=== PATIENT | female | born 1985 | race Caucasian/White ===

== ENCOUNTER 2016-10-28 23:00 | Emergency (ER) | payer MEDICAID ==
[2016-10-28 23:41] LABS: BILIRUBIN,URINE NEGATIVE (NEGATIVE)
[2016-10-28 23:48] LABS: UA w/ MICROSCOPIC CHARGE YES
[2016-10-28] MEDS ORDERED: HYDROmorphone 1 MG/ML SYRINGE IVP STA (23:58)
[2016-10-28] MEDS ORDERED: ONDANSETRON 4 MG/2 ML VIAL IVP STA (23:58)
[2016-10-28] MEDS ORDERED: SODIUM CHLORIDE 0.9% 1,000 ML IV ONE (23:58)
[2016-10-29] MEDS ORDERED: SODIUM CHLORIDE 0.9% 1,000 ML IV ONE
[2016-10-29] MEDS ORDERED: HYDROmorphone 1 MG/ML SYRINGE ONE
[2016-10-29] MEDS ORDERED: ONDANSETRON 4 MG/2 ML VIAL ONE
[2016-10-29 00:01] LABS: UR CULTURE IF IND INDICATED
[2016-10-29 00:15] LABS: BASOPHILS % (AUTO) 0.4 %; EOSINOPHILS # (AUTO) 0.1 10^3/uL (0.0-0.7); EOSINOPHILS % (AUTO) 1.2 %; HCT - HEMATOCRIT 39.9 % (37.0-47.0); HGB - HEMOGLOBIN 13.4 g/dL (12.0-16.0); LYMPHOCYTES # (AUTO) 2.1 10^3/uL (1.5-3.5); LYMPHOCYTES % (AUTO) 23.2 %; MEAN CORPUSCULAR HGB CONC 33.7 g/dL (32.0-36.0); MEAN PLATELET VOLUME 8.1 fL (7.9-10.8); MONOCYTES # (AUTO) 0.8 10^3/uL (0.0-1.0); MONOCYTES % (AUTO) 8.6 %; NEUTROPHILS # (AUTO) 6.1 10^3/uL (1.5-6.6); NEUTROPHILS % (AUTO) 66.6 %; RED BLOOD COUNT 4.34 10^6/uL (4.20-5.40); RED CELL DISTRIBUTION WIDTH 12.8 % (12.0-15.0); UNCORRECTED WHITE BLOOD COUNT 9.2 x10^3/uL; WHITE BLOOD COUNT 9.2 x10^3/uL (4.8-10.8)
[2016-10-29 00:18] LABS: HCG UR QUAL POSITIVE
[2016-10-29 00:30] LABS: ALBUMIN/GLOBULIN RATIO 1.3 (1.0-2.2); BILIRUBIN,TOTAL 0.3 mg/dL (0.2-1.0); CALCIUM 9.1 mg/dL (8.5-10.3); CREATININE 0.6 mg/dL (0.4-1.0); POTASSIUM 3.4 mmol/L (3.5-5.0)
--- NOTE | 2016-10-29 03:20 | Ultrasound Preliminary Report ---
Exam: US OB First Trimester IMPRESSION: 1. Single viable intrauterine at EGA 6 weeks 5 days with KRYSTYNA 06/19/2017 based on crown-rump length, which is discordant with clinical dates. 2. Assigned dating is KRYSTYNA 06/19/2017 based on current ultrasound. 3. Heterogeneous appearance of the cervix, of uncertain etiology. [facility] SITE ID: [id number]
[2016-10-29 03:23] VITALS: BP 120/70
--- NOTE | 2016-10-29 03:23 | Ultrasound Report ---
EXAM: FIRST TRIMESTER OBSTETRIC ULTRASOUND (Less than 11 weeks) EXAM DATE: 10/29/2016 03:01 AM. CLINICAL HISTORY: Pelvic cramping pain in first trimester. LMP: 08/30/2016. COMPARISONS: None. TECHNIQUE: Transabdominal and transvaginal ultrasound examination with static image documentation. CLINICAL DATES: EGA 8 weeks 4 days with KRYSTYNA 06/06/2017 based on LMP. ASSESSMENT: Gestational Sac: Single intrauterine. Mean gestational sac diameter: 31 mm = 8 weeks 2 days. Embryo: CRL (crown-rump length) 7 mm = 6 weeks 5 days. Cardiac activity: 136 beats per minute. Yolk sac: 3.3 mm. Early placenta: Not visible at this gestational age. Other: No perigestational fluid collection demonstrated. MATERNAL STRUCTURES: Uterus: Retroverted. Possible intramural fibroid at the right lateral fundal area measuring 1.4 x 1.1 x 1.2 cm. Cervix: Closed. Heterogeneous echotexture. Right Ovary: 3.1 x 2.2 x 2.8 cm, volume 9.9 cc. Unremarkable. Left Ovary: 2.6 x 1.9 x 2.9 cm, volume 7.7 cc. Unremarkable. Free Fluid: None. Other: None. IMPRESSION: 1. Single viable intrauterine at EGA 6 weeks 5 days with KRYSTYNA 06/19/2017 based on crown-rump length, which is discordant with clinical dates. 2. Assigned dating is KRYSTYNA 06/19/2017 based on current ultrasound. 3. Heterogeneous appearance of the cervix, of uncertain etiology. [facility] Referring Provider Line: [phone] SITE ID: [id number]
--- NOTE | 2016-10-29 03:25 | ED Physician Documentation ---
PD HPI FEMALE - Stated complaint Stated Complaint: ABDOMINAL CRAMPING,8W - Chief complaint Chief Complaint: Abd Pain - History obtained from History obtained from: Patient - History of Present Illness Timing - onset: How many hours ago (4) Timing - details: Still present Pain level max: 10 Associated symptoms: Pelvic pain (cramping). No: Vaginal bleeding, Dysuria Contributing factors: (at approximately 8 weeks gestation) OB-CAPITAL PROJECT ENGINEER History: G (7), P (4), Miscarriage(s) (2) - Additional information Additional information: The patient is a spontaneous AB 2 female, currently at about 8 weeks gestation, who presents with pelvic cramping pain that started about 4 hours prior to arrival. She denies vaginal bleeding or dysuria. She reports nausea but denies vomiting or fever. Review of Systems Constitutional: denies: Fever Nose: denies: Congestion Throat: denies: Sore throat Cardiac: denies: Chest pain / pressure Respiratory: denies: Dyspnea, Cough GI: reports: Abdominal Pain (Lower abdominal/pelvic cramping.), Nausea. denies : Vomiting : reports: LMP (Mid-August.). denies: Dysuria, Vaginal bleeding Skin: denies: Rash Musculoskeletal: denies: Back pain Neurologic: denies: Headache PD PAST MEDICAL HISTORY - Past Medical History Cardiovascular: None Respiratory: None Neuro: Headache/migraine Endocrine/Autoimmune: None GI: None : Other HEENT: None Psych: Depression Musculoskeletal: None Derm: None Other Past Medical History: UTI - Past Surgical History Past Surgical History: Yes - Present Medications Home Medications: Ambulatory Orders Medication Instructions Recorded Confirmed Nitrofurantoin [Macrobid] 100 mg PO ONCE #5 capsule 10/29/16 Ondansetron Odt [Zofran] 4 mg TL Q6H PRN #10 tablet 10/29/16 - Allergies Allergies/Adverse Reactions: Allergies Allergy/AdvReac Type Severity Reaction Status Date / Time No Known Drug Allergies Allergy Verified 10/28/16 23:08 - Social History Does the pt smoke?: No Smoking Status: Never smoker Does the pt drink ETOH?: Yes Does the pt have substance abuse?: No - Immunizations Immunizations are current?: Yes - POLST Patient has POLST: No PD ED PE NORMAL - Vitals Vital signs reviewed: Yes (normal) - General General: Alert and oriented X 3, Well developed/nourished, Other (Appears uncomfortable, sitting up and rocking on the gurney.) - HEENT HEENT: Atraumatic, EOMI, Pharynx benign - Neck Neck: No adenopathy, No JVD - Cardiac Cardiac: RRR, No murmur - Respiratory Respiratory: No respiratory distress, Clear bilaterally - Abdomen Abdomen: Soft, Other (Tenderness to palpation in the suprapubic region, without rebound tenderness or guarding.) - Female Female : General Medical Practitioner present - Back Back: No CVA TTP - Derm Derm: No rash - Extremities Extremities: No edema, No calf tenderness / cord - Neuro Neuro: Alert and oriented X 3, No motor deficit, Normal speech PD ED PE EXPANDED - Female Female : Normal external, Enlarged uterus, Cultures sent, General Medical Practitioner present. No: Vaginal Bleeding, Vaginal Discharge, Dilated cervix, Tissue present, Adnexal Mass, Adnexal Tenderness Results - Vitals Vitals: Vital Signs - 24 hr 10/28/16 10/29/16 10/29/16 23:00 00:15 00:47 Temperature 36.8 C Heart Rate 121 H 102 H 96 Respiratory 20 18 14 Rate Blood Pressure 146/84 H 121/60 114/62 O2 Saturation 97 98 97 10/29/16 10/29/16 00:58 03:22 Temperature Heart Rate 91 72 Respiratory 16 16 Rate Blood Pressure 114/62 120/70 O2 Saturation 100 100 Oxygen O2 Source Room air - Labs Labs: Microbiology 10/28/16 23:25 Urine Culture - Preliminary Urine,Clean Catch Laboratory Tests 10/28/16 10/28/16 10/28/16 00:05 00:05 00:05 WBC 9.2 RBC 4.34 Hgb 13.4 Hct 39.9 MCV 92.0 MCH 31.0 MCHC 33.7 RDW 12.8 Plt Count 213 MPV 8.1 Neut # 6.1 Lymph # 2.1 [place] # 0.8 Eos # 0.1 Baso # 0.0 Absolute Nucleated RBC 0.00 Nucleated RBCs 0.0 Sodium 135 Potassium 3.4 L Chloride 103 Carbon Dioxide 24 Anion Gap 8.0 BUN 10 Creatinine 0.6 Estimated GFR (MDRD) 115 Glucose 112 H Calcium 9.1 Total Bilirubin 0.3 AST 17 ALT 15 Alkaline Phosphatase 46 Total Protein 7.0 Albumin 4.0 Globulin 3.0 Albumin/Globulin Ratio 1.3 Lipase 24 HCG, Quant 19639.00 Urine Color Urine Clarity Urine pH Ur Specific [place] Urine Protein Urine Glucose (UA) Urine Ketones Urine Occult Blood Urine Nitrite Urine Bilirubin Urine Urobilinogen Ur Leukocyte Esterase Urine RBC Urine WBC Ur Squamous Epith Cells Urine Bacteria Ur Microscopic Review Urine Culture Comments Urine HCG, Qual 10/28/16 10/28/16 23:25 23:25 WBC RBC Hgb Hct MCV MCH MCHC RDW Plt Count MPV Neut # Lymph # [place] # Eos # Baso # Absolute Nucleated RBC Nucleated RBCs Sodium Potassium Chloride Carbon Dioxide Anion Gap BUN Creatinine Estimated GFR (MDRD) Glucose Calcium Total Bilirubin AST ALT Alkaline Phosphatase Total Protein Albumin Globulin Albumin/Globulin Ratio Lipase HCG, Quant Urine Color YELLOW Urine Clarity CLEAR Urine pH 6.0 Ur Specific [place] 1.010 1.010 Urine Protein NEGATIVE Urine Glucose (UA) NEGATIVE Urine Ketones NEGATIVE Urine Occult Blood SMALL H Urine Nitrite POSITIVE H Urine Bilirubin NEGATIVE Urine Urobilinogen 0.2 (NORMAL) Ur Leukocyte Esterase SMALL H Urine RBC 0-5 Urine WBC 11-25 H Ur Squamous Epith Cells NONE SEEN Urine Bacteria None Seen Ur Microscopic Review INDICATED Urine Culture Comments INDICATED Urine HCG, Qual POSITIVE - Rads (name of study) Pelvic U/S Radiology: Prelim report reviewed, EMP read contemporaneously, See rad report (1 ) Single viable intrauterine at an estimated gestational age 6 weeks 5 days, with KRYSTYNA 06/19/2017 based on crown-rump length, which is discordant with clinical dates. 2)Assigned dating is KRYSTYNA is 06/19/2017 based on current ultrasound. 3)Heterogeneous appearance of the cervix, of uncertain etiology.) PD MEDICAL DECISION MAKING - ED course Complexity details: reviewed results, re-evaluated patient, considered differential, d/w patient, d/w family ED course: The patient's presentation is significant for pelvic cramping pain during first trimester . Pelvic ultrasound reveals a viable single intrauterine at an estimated gestational age of 6 weeks, 5 days. Urinalysis is positive for leukocyte esterase and nitrates. Urine culture and sensitivity are pending. Treatment in the emergency department included administration of normal saline 1 L IV, Dilaudid 1 mg IV, and Zofran 4 mg IV. This completely relieved the patient's pain and nausea. Nitrofurantoin 100 mg administered orally. She is being discharged with prescriptions for Macrobid and for Phenergan. 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 Departure - Departure Disposition: 01 Home, Self Care Clinical Impression: Pelvic pain affecting in first trimester, antepartum Urinary tract infection Qualifiers: Urinary tract infection type: acute cystitis Hematuria presence: without hematuria Qualified Code(s): N30.00 - Acute cystitis without hematuria Condition: Stable Instructions: ED UTI Cystitis Female, ED Pelvic Pain UKO, Preg 1st Trimester Follow-Up: Shannan Kimball, [Provider Admit Priv/Credential] - Prescriptions: Nitrofurantoin [Macrobid] 100 mg PO ONCE #5 capsule Ondansetron Odt [Zofran] 4 mg TL Q6H PRN #10 tablet PRN Reason: Nausea / Vomiting Comments: Drink plenty of fluids, including cranberry juice. Take Macrobid twice daily as prescribed. You can use Zofran as prescribed if needed for nausea. Use Tylenol, up to 1000 mg 4 times daily if needed for discomfort. Follow up with your e learning specialist on Saturday as planned. Return to the emergency department if you develop increasing pain, persistent vomiting, or otherwise worsening symptoms. Discharge Date/Time: 10/29/16 03:55
[2016-10-29] MEDS ORDERED: NITROFURANTOIN MACRO 100 MG CAPSULE PO STA (03:41)
[2016-10-29] MEDS ORDERED: NITROFURANTOIN MACRO 100 MG CAPSULE PO ONE (03:47)
[2016-10-30 20:03] LABS: C.TRACHOMATIS BY TMA Negative (Negative); N.GONORRHOEAE BY TMA Negative (Negative)
== END 2016-10-29 03:55 | disposition home or self-care (01) ==
LOC: ED 23:00
DX: O26.891 Other specified pregnancy related conditions, first trimester (principal); R10.2 Pelvic and perineal pain; O23.11 Infections of bladder in pregnancy, first trimester; Z3A.01 Less than 8 weeks gestation of pregnancy
CPT/HCPCS: 36415; 76801; 76817; 80053; 81001; 81025; 83690; 84702; 85025; 87077; 87086; 87181; 87491; 87591; 96361; 96374; 96375; 99284; A9270; J1170; 81003

== ENCOUNTER 2016-11-26 11:16 | Outpatient (CLI) | payer MEDICAID | END 2016-11-26 11:17 | disposition home or self-care (01) | DX: Z36 Encounter for antenatal screening of mother (principal) ==

== ENCOUNTER 2017-01-08 08:00 | Outpatient (CLI) | payer MEDICAID | END 2017-01-08 08:01 | disposition home or self-care (01) | LOC: LAB 08:00 | PROVIDERS: ATTEND Obstetrics & Gynecology | DX: Z36 Encounter for antenatal screening of mother (principal) | CPT/HCPCS: 36415; 81599; 82105 ==

== ENCOUNTER 2017-02-04 12:49 | Outpatient (CLI) | payer MEDICAID ==
--- NOTE | 2017-02-04 18:42 | Ultrasound Report ---
OBSTETRICAL ULTRASOUND: 02/04/2017 TECHNIQUE: Real-time scanning was performed with patient service representative static images obtained. COMPARISON: 10/29/2016 Patient's EDC by early obstetrical ultrasound done on 10/29/2016 is 06/17/2017. TECHNIQUE: Real-time scanning was performed with patient service representative static images obtained. LAST MENSTRUAL PERIOD 09/12/2016 Clinical Age 20 weeks 5 days US Age 20 weeks 3 days EFW Hadlock 374 g EFW% Hadlock --- Heart Rate 136 bpm EDC 06/19/2017 US EDC 06/21/2017 BPD Hadlock 19 weeks 3 days; Mean mm 44.6 HC Hadlock 19 weeks 5 days; Mean mm 171.0 AC Hadlock 21 weeks 0 days; Mean mm 158.6 FL Hadlock 20 weeks 6 days; Mean mm 34.5 Presentation variable Placental Location anterior Cervical Length 5.47 cm Amniotic Fluid 14.29 cm FINDINGS: Composite gestational age today is 20 weeks 3 days. EDC by ultrasound today is 06/21/2017. Present gestational age is only 3 days less advanced than expected as calculated from patient's early obstetrical ultrasound. This degree of growth is within normal limits. Estimated weight today is 374 grams. Fetus anatomically appears within normal limits. This includes head, body , spine, four-chamber view of the heart, cardiac outflow tract, and bladder. face appears normal including nasal bones. Normal three-vessel umbilical cord is seen. Anterior placenta is noted. Umbilical cord insertion site is slightly eccentric but is greater than 2 cm from the periphery of the edge of the placenta. No placenta previa was seen. Amniotic fluid volume index is 14.29. This is within the 50th percentile. heart rate is 136 beats per minute and regular. The maternal cervix appears to be enlarged and along its left half contains prominent hyperechoic structure measuring 3.0 x 3.5 x 5.0 cm. This hyperechoic tissue within the mid and left side of the uterus is nonspecific. It was seen on preceding ultrasound of 10/29/2006 and is unchanged. It appears to enlarge the cervix. Cervix measures 6.7 x 3.0 x 8.1 cm. This finding could represent a fibroid within the cervix. There is a solid mass noted projecting from the left lateral aspect of the cervix measuring 2.2 x 3.6 x 1.8 cm. This isoechoic to hypoechoic solid mass may represent an adventitial fibroid extending from the superolateral aspect of the cervix. The patient should be very carefully followed. The cervix should be reevaluated at 30 weeks and 1-2 weeks prior to delivery. If these do represent fibroids, they could interfere with a vaginal delivery. IMPRESSION: 1. SINGLE FETUS IS NOTED IN VARIABLE POSITIONS WITHIN THE UTERUS WITH COMPOSITE GESTATIONAL AGE TODAY OF 20 WEEKS 3 DAYS. THE PRESENT GESTATIONAL AGE IS 3 DAYS LESS ADVANCED THAN EXPECTED CALCULATED FROM PATIENT 'S ORIGINAL ULTRASOUND OF 10/29/2016. 2. NORMAL ANATOMY IS NOTED. 3. ANTERIOR PLACENTA. 4. NORMAL AMOUNT OF AMNIOTIC FLUID IS NOTED. 5. SIGNIFICANTLY ENLARGED CERVIX IS ONCE AGAIN NOTED. THE CERVIX SHOWS HYPERECHOIC TISSUE IN ITS LEFT SIDE THAT MOST LIKELY PRODUCES THE ENLARGEMENT. THIS HYPERECHOIC TISSUE MAY REPRESENT A FIBROID WITHIN THE CERVIX. IN ADDITION , EXTENDING FROM THE LATERAL SUPERIOR ASPECT OF THE CERVIX MAY BE A SMALLER ADVENTITIAL FIBROID. RECOMMEND THE CERVIX BE EVALUATED AT 30 WEEKS GESTATIONAL AGE AND THEN 1-2 WEEKS PRIOR TO TERM DELIVERY. IF THESE INDEED REPRESENT FIBROIDS, THEY COULD INTERFERE WITH VAGINAL DELIVERY. RECOMMEND CLINICAL CORRELATION. JOB #: [id number] EXT JOB #: [id number] GORDO
== END 2017-02-04 12:50 | disposition home or self-care (01) ==
LOC: DI 12:49
PROVIDERS: ATTEND Obstetrics & Gynecology
DX: Z34.82 Encounter for supervision of other normal pregnancy, second trimester (principal)
CPT/HCPCS: 76811

== ENCOUNTER 2017-03-06 16:15 | Outpatient (CLI) | payer MEDICAID | END 2017-03-06 16:16 | disposition home or self-care (01) | LOC: LAB 16:15 | PROVIDERS: ATTEND Obstetrics & Gynecology | DX: Z34.82 Encounter for supervision of other normal pregnancy, second trimester (principal) | CPT/HCPCS: 36415; 82950; 85018; 86850 ==

== ENCOUNTER 2017-05-30 15:28 | Outpatient (CLI) | payer MEDICAID | END 2017-05-30 15:29 | disposition home or self-care (01) | LOC: LAB.R 15:28 | PROVIDERS: ATTEND Obstetrics & Gynecology | DX: R30.0 Dysuria (principal) | CPT/HCPCS: 87086 ==

== ENCOUNTER 2017-05-31 14:26 | Outpatient (CLI) | payer MEDICAID ==
[2017-05-31 14:48] VITALS: BP 124/81
== END 2017-05-31 18:56 | disposition home or self-care (01) ==
LOC: WFO 14:26 → FBP 14:28 → WFO 18:56
PROVIDERS: ATTEND Obstetrics & Gynecology
DX: O47.1 False labor at or after 37 completed weeks of gestation (principal); Z3A.37 37 weeks gestation of pregnancy
CPT/HCPCS: 99213

== ENCOUNTER 2017-06-07 15:10 | Outpatient (CLI) | payer MEDICAID | END 2017-06-07 15:11 | disposition home or self-care (01) | LOC: LAB.R 15:10 | PROVIDERS: ATTEND Obstetrics & Gynecology | DX: Z36.9 Encounter for antenatal screening, unspecified (principal) | CPT/HCPCS: 87081 ==

== ENCOUNTER 2017-06-10 15:05 | Outpatient (CLI) | payer MEDICAID ==
[2017-06-10 15:57] LABS: BASOPHILS % (AUTO) 0.2 %; EOSINOPHILS % (AUTO) 0.4 %; HCT - HEMATOCRIT 40.2 % (37.0-47.0); HGB - HEMOGLOBIN 13.5 g/dL (12.0-16.0); LYMPHOCYTES # (AUTO) 1.6 10^3/uL (1.5-3.5); LYMPHOCYTES % (AUTO) 17.3 %; MEAN CORPUSCULAR HEMOGLOBIN 31.7 pg (27.0-31.0); MEAN CORPUSCULAR HGB CONC 33.5 g/dL (32.0-36.0); MEAN CORPUSCULAR VOLUME 94.6 fL (81.0-99.0); MEAN PLATELET VOLUME 8.6 fL (7.9-10.8); MONOCYTES # (AUTO) 0.7 10^3/uL (0.0-1.0); MONOCYTES % (AUTO) 7.7 %; NEUTROPHILS # (AUTO) 6.9 10^3/uL (1.5-6.6); NEUTROPHILS % (AUTO) 74.4 %; RED BLOOD COUNT 4.25 10^6/uL (4.20-5.40); RED CELL DISTRIBUTION WIDTH 13.7 % (12.0-15.0); UNCORRECTED WHITE BLOOD COUNT 9.2 x10^3/uL; WHITE BLOOD COUNT 9.2 x10^3/uL (4.8-10.8)
== END 2017-06-10 15:06 | disposition home or self-care (01) ==
LOC: LAB 15:05
PROVIDERS: ATTEND Obstetrics & Gynecology
DX: Z01.812 Encounter for preprocedural laboratory examination (principal); D26.0 Other benign neoplasm of cervix uteri
CPT/HCPCS: 36415; 85025; 86850; 86900; 86901; 86920

== ENCOUNTER 2017-06-12 06:34 | Inpatient (IN) | payer MEDICAID ==
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
[2017-06-12] MEDS ORDERED: CITRIC ACID/SODIUM CITRATE 15 ML UDC PO ONE (07:40)
[2017-06-12] MEDS ORDERED: LACTATED RINGERS 500 ML IV ONE (07:40)
[2017-06-12] MEDS ORDERED: LACTATED RINGERS 1,000 ML IV ONE ×4 (08:08→10:11)
[2017-06-12] MEDS ORDERED: SODIUM CHLORIDE FLUSH 0.9% 10 ML SYRINGE IVP ONE (09:26)
[2017-06-12] MEDS ORDERED: DEXAMETHASONE 4 MG/ML VIAL IVP ONE (10:45)
[2017-06-12] MEDS ORDERED: OXYTOCIN 10 UNIT/ML VIAL IV ONE (10:45)
[2017-06-12] MEDS ORDERED: KETOROLAC 30 MG/ML VIAL IVP ONE (10:45)
[2017-06-12] MEDS ORDERED: METOCLOPRAMIDE 10 MG/2 ML VIAL IVP ONE (10:45)
[2017-06-12] MEDS ORDERED: ONDANSETRON 4 MG/2 ML VIAL IVP ONE (10:45)
[2017-06-12] MEDS ORDERED: diphenhydrAMINE 25 MG CAPSULE PO PRN (11:23)
[2017-06-12] MEDS ORDERED: MAGNESIUM HYDROXIDE 2,400 MG/30 ML UDC PO PRN (11:23)
[2017-06-12] MEDS: OXYTOCIN/SODIUM CHLORIDE 250 ML IV ONE ×2 (11:34→17:20)
--- NOTE | 2017-06-12 11:43 | OPERATIVE REPORT ---
Operative Report - General Admit Date: 06/12/17 - Other Other Information/Narrative: Date of Operation: 06/12/2017 Surgeon: Shannan Kimball DO FACOG Wheel Fitter: Hesham Figueroa MD FACOG Anesthesiologist: Pacheco Najera MD Anesthesia: Spinal Pre-op Dx: 1. 31 yo with a 39w0d IUP 2. Cervical mass Post-op Dx: 1. 31 yo with a 39w0d IUP 2. Cervical mass Procedure: Primary Delivery Findings: Viable male infant, "Ramon Edward" in VTX presentation. Normal ovaries and fallopian tubes. 4-5 cm leiomyoma, on superior-anterior left portion of the cervix. Appears pedunculated. Specimens: 1. Placenta 2. Cord blood Drains: 1. Armstrong catheter to gravity 2. Prevena wound vac EBL: 600 mL Complications: None [id number]
[2017-06-12] MEDS: oxyCODONE 5 MG TABLET PO PRN ×3 (13:11→22:25)
[2017-06-12] MEDS: ACETAMINOPHEN 500 MG TABLET PO SCH ×2 (13:13→21:18)
[2017-06-12] MEDS: SODIUM CHLORIDE FLUSH 0.9% 10 ML SYRINGE IVP SCH (15:03)
--- NOTE | 2017-06-12 15:26 | OPERATIVE REPORT ---
DATE OF SURGERY: 06/12/2017 00:00:00 SURGEON: Shannan Kimball DO, FACOG. CUSTOM GARMENT DESIGNER: Hesham Figueroa MD, FACOG. ANESTHESIOLOGIST: Pacheco Najera MD. ANESTHESIA: Spinal. PREOPERATIVE DIAGNOSES 1. A 31-year-old G7, P3-0-4-3 with a 39-0/7 week intrauterine . 2. Cervical mass. POSTOPERATIVE DIAGNOSES 1. A 31-year-old G7, P3-0-4-3 with a 39-0/7 week intrauterine . 2. Cervical mass. NAME OF PROCEDURE: Primary delivery. FINDINGS: A viable male infant named Ramon Palma in vertex presentation, normal ovaries and fallopian tubes. There is a left superior anterior 4-5 cm leiomyomata on the cervix that appears to be pedunculated. SPECIMENS 1. Placenta. 2. Cord blood. DRAINS 1. Armstrong catheter to gravity. 2. Prevena wound VAC. ESTIMATED BLOOD LOSS: 600 mL. COMPLICATIONS: None. BRIEF HISTORY: This is a patient of [facility] [place] [facility] with whom we have been seeing continuously throughout her . During a 20-week anatomical survey, a cervical mass was noted. The cervical mass was closely followed and eventually she was referred to maternal medicine. From maternal medicine's point of view, the cervical mass was large enough that it would obstruct the fetus from traversing the vagina. A gynecological oncology consult was also obtained secondary to the potential of a malignant mass. The patient did have a history of a LEEP procedure, but it was no greater than CIN3 and margins were clean. It was recommended by Dr. Hesham Guillaume, maternal medicine specialist, that the patient should undergo a delivery. I discussed with her the risks, benefits, alternatives, indications and expectations of a delivery. Included in our discussion were the risks of hemorrhage, infection, and damage to surrounding organs. This may include, but is not limited to an inadvertent laceration, cauterization, or ligation of adjacent intestines, bladder, and ureters. Also, with the cervical mass involved, that most likely the leiomyomata, hemostasis would be more difficult to obtain. In worst case scenario, the patient may have to have a hysterectomy in order to obtain hemostasis. This would impact her future fertility. After the patient's questions were answered to her satisfaction, she verbalized her desire to proceed with surgery. Consent forms have been signed. OPERATION IN DETAIL: The patient was identified, consented, and taken to the operating room where IV access was already in place. She had 2 large cord needle access sites. She was then given satisfactory spinal anesthesia as per Pacheco Najera. Sequential compression devices were placed on the lower extremities and turned on. A Armstrong catheter was placed in her bladder. She was then prepped and draped in a normal sterile fashion in the dorsal lithotomy position with a leftward tilt. A timeout was performed, which correctly identified the patient, site of the procedure, and the procedure itself. Skin testing showed that there was satisfactory anesthesia for this case. A Pfannenstiel skin incision was made approximately 3 fingerbreadths above the pubic symphysis. This was made higher than my normal incision because I did not want to disrupt her "bon appetite" tattoo. The incision was then carried to the underlying layer of fascia with electrocautery. The incision was then taken to the fascia. The fascia was then nicked in the midline and extended laterally. Rectus muscles were then dissected off the fascia. The rectus muscles were bluntly in midline and the peritoneum entered bluntly as well. A bladder flap was then created by dissecting off the vesicouterine peritoneum. A hysterotomy was performed in the lower uterine segment in a transverse fashion. It was noted that there was a 4-5 cm fibroid that was pedunculated in the superior portion of the left side of the cervix. This fibroid was not in the way of the direct area of surgery. Amniotomy revealed clear fluid. With the help of fundal pressure, the infant's head delivered easily and without difficulty through the hysterotomy. The nose and mouth were suctioned with the bulb syringe. A loose nuchal cord x1 was reduced. Again, with the help of fundal pressure, the rest of the infant delivered easily through the hysterotomy. The baby gave a lusty cry upon delivery. The umbilical cord was doubly clamped and cut and the infant was then handed off to Dr. Capo Bray, the on-call sweatband decorating machine operator. Cord blood was then obtained and sent off. The uterus was then internally massaged and placenta delivered manually. The uterus was then delivered out the abdomen and cleared of all clots and debris. Hysterotomy was then repaired with 2 sutures of 0 Vicryl, first in a running fashion and then a Lembert stitch in order to imbricate the hysterotomy. Hemostasis was noted. The abdomen was then copiously irrigated. The uterus was then returned to the abdomen and again irrigated. Hemostasis was noted. The peritoneum was then closed with a running stitch of 2-0 Vicryl and the same stitch was used to reapproximate the rectus muscles. There were some small areas of rectus muscle defect, in which we saw preperitoneal fat extruding through the rectus muscles. The defects were repaired with 0 Vicryl. Hemostasis was noted. The fascia was then closed with 0 Vicryl in a running stitch. Subcuticular tissue was then reapproximated with 0 Vicryl in simple interrupted sutures. The skin was then reapproximated with 4-0 Monocryl in a subcuticular fashion. Finally, a Prevena wound VAC was placed on the incision and turned on. The patient tolerated the procedure well, was taken back to the recovery room in stable and awake condition. She will be given routine care, including aggressive pain management. All sponge, lap and needle counts were correct x2 as per nurse report. JOB #: [id number] EXT JOB #:[id number] GORDO
[2017-06-12] MEDS: SIMETHICONE CHEW 80 MG TABLET PO SCH ×2 (16:41→22:25)
[2017-06-12] MEDS: DOCUSATE SODIUM 100 MG CAPSULE PO SCH (21:17)
[2017-06-12] MEDS: CELECOXIB 100 MG CAPSULE PO SCH (21:17)
[2017-06-13] MEDS: oxyCODONE 5 MG TABLET PO PRN ×5 (02:52→21:51)
[2017-06-13] MEDS: SODIUM CHLORIDE FLUSH 0.9% 10 ML SYRINGE IVP PRN ×2 (04:54→11:53)
[2017-06-13] MEDS: ACETAMINOPHEN 500 MG TABLET PO SCH ×3 (04:54→21:51)
[2017-06-13] MEDS: SODIUM CHLORIDE FLUSH 0.9% 10 ML SYRINGE IVP SCH ×2 (07:03→10:14)
[2017-06-13] MEDS: ONDANSETRON 4 MG/2 ML VIAL IVP PRN ×2 (07:03→11:52)
[2017-06-13] MEDS ORDERED: METOCLOPRAMIDE 10 MG/2 ML VIAL IVP PRN (08:21)
--- NOTE | 2017-06-13 08:24 | PROVIDER PROGRESS NOTE ---
Subjective - Prog Note Date Prog Note Date: 06/13/17 Prog Note Time: 08:22 - Subjective Subjective: Sitting in bed, talking to the baby. Had nausea which was not improved with zofran. Feels like food "just sitting there" and having an acidic taste in her mouth. Arsmtrong out but has not ambulated nor voided. Pain controlled otherwise and normal lochia. Objective - Vital Signs/Intake & Output Reviewed Vital Signs: Yes Vital Signs: Vital Signs x48h Temp Pulse Resp BP Pulse Ox 06/13/17 05:00 97.7 F 59 L 18 117/78 96 06/13/17 01:29 98.2 F 67 16 120/77 96 Intake & Output: Intake & Output 06/10/17 06/11/17 06/12/17 06/13/17 23:59 23:59 23:59 23:59 Intake Total 1799 650 Output Total 2013 2099 Balance -214 1450 - Objective General Appearance: positive: No acute distress Eyes Bilateral: positive: Normal inspection Abdomen: positive: Non-tender (Wound vac in place and working well. Instructions for care of wound vac relayed.) Neurologic/Psychiatric: positive: Oriented x3 Assessment/Plan - Problem List (1) delivery delivered Impression: 31 yo S/p delivery 06/12/2017, POD #1 Normal recovery Nausea, likely secondary to GERD-like symptoms Will start raniditine and give reglan (since it worked well for her yesterday during surgery) Ambulate Continue aggressive pain control May be discharged to home as early as tomorrow (2) Cervical mass Impression: Delivered Will repeat pelvic U/S after visit
[2017-06-13] MEDS: SERTRALINE 50 MG TABLET PO SCH (10:12)
[2017-06-13] MEDS: DOCUSATE SODIUM 100 MG CAPSULE PO SCH ×2 (10:12→21:52)
[2017-06-13] MEDS: CELECOXIB 100 MG CAPSULE PO SCH ×2 (10:12→21:51)
[2017-06-13] MEDS: SIMETHICONE CHEW 80 MG TABLET PO SCH ×2 (14:10→21:52)
[2017-06-13] MEDS ORDERED: ONDANSETRON ODT 4 MG TABLET TL PRN (14:21)
[2017-06-13] MEDS: PANTOPRAZOLE 40 MG TABLET PO SCH (14:36)
[2017-06-14] MEDS: oxyCODONE 5 MG TABLET PO PRN ×4 (03:06→18:18)
[2017-06-14] MEDS: ACETAMINOPHEN 500 MG TABLET PO SCH ×3 (05:51→21:35)
[2017-06-14] MEDS: PANTOPRAZOLE 40 MG TABLET PO SCH (05:52)
--- NOTE | 2017-06-14 08:39 | PROVIDER PROGRESS NOTE ---
Subjective - Prog Note Date Prog Note Date: 06/14/17 Prog Note Time: 08:37 - Subjective Pt reports feeling: Improved Subjective: Patient sitting in bed breast feeding baby. Feeling much better. Started PPI and H2 sunil yesterday. No nausea or vomiting. Pain controlled and urinating without difficulty. Lochia decreasing. Baby down 9% weight and low risk bili. Unsure if she wants to go home. Objective - Vital Signs/Intake & Output Reviewed Vital Signs: Yes Intake & Output: Intake & Output 06/11/17 06/12/17 06/13/17 06/14/17 23:59 23:59 23:59 23:59 Intake Total 1799 1909 550 Output Total 2013 2251 Lwludxo -214 -875 550 - Objective General Appearance: positive: No acute distress Eyes Bilateral: positive: Normal inspection Abdomen: positive: Non-tender (Wound vac in place and working well) Neurologic/Psychiatric: positive: Oriented x3 Assessment/Plan - Problem List (1) delivery delivered Impression: 31 yo S/p primary CD 06/12/2017 for cervical mass, POD#2 Normal recovery Improved nausea and vomiting Continue current care Anticipate discharge to home tomorrow 06/15/2017 Patient to continue routine zoloft 100 mg po daily Rx for colace, ibuprofen, tylenol and oxycodone have already been given to the patient Call for worsening fevers, chills, abdominal pain or vaginal bleeding Discharge summary dictated: 237110 (2) Cervical mass Impression: S/p CD, likely leiomyoma
[2017-06-14] MEDS: SERTRALINE 50 MG TABLET PO SCH (08:40)
[2017-06-14] MEDS: CELECOXIB 100 MG CAPSULE PO SCH ×2 (08:41→21:35)
[2017-06-14] MEDS: SIMETHICONE CHEW 80 MG TABLET PO SCH ×4 (08:41→21:36)
[2017-06-14] MEDS: LACTATED RINGERS 1,000 ML IV SCH ×5 (20:31→20:37)
[2017-06-14] MEDS: SODIUM CHLORIDE FLUSH 0.9% 10 ML SYRINGE IVP SCH ×5 (20:33→21:37)
[2017-06-14] MEDS: DOCUSATE SODIUM 100 MG CAPSULE PO SCH ×2 (20:36→21:36)
[2017-06-15] MEDS: LACTATED RINGERS 1,000 ML IV SCH (04:25)
[2017-06-15] MEDS: ACETAMINOPHEN 500 MG TABLET PO SCH (06:07)
[2017-06-15] MEDS: PANTOPRAZOLE 40 MG TABLET PO SCH (06:08)
[2017-06-15] MEDS: SODIUM CHLORIDE FLUSH 0.9% 10 ML SYRINGE IVP SCH (06:08)
[2017-06-15 08:13] VITALS: BP 118/64
--- NOTE | 2017-06-15 09:14 | PROVIDER PROGRESS NOTE ---
Subjective - General Admit Date: 06/12/17 Procedure Date: 06/12/17 Post Op Days: 3 - Review of Systems Wound/Incisions: positive: Dressing dry and intact Drain Type: Wound Vac General: positive: No symptoms (Pasin 1/10, voiding, flatus) Gastrointestinal: positive: No symptoms, Flatus. negative: Nausea, Vomiting Objective - Patient Data Vital Signs: Vital Signs x48h Temp Pulse Resp BP BP Pulse Ox 06/15/17 08:11 36.9 C 73 16 118/64 98 06/15/17 04:21 36.7 C 58 L 16 115/64 97 Intake & Output: Intake and Output Totals x24h 06/13/17 06/14/17 06/15/17 23:59 23:59 23:59 Intake Total 1910 550 Output Total 2252 Balance -342 550 - Current Medications Current Medications: Current Medications Generic Name Dose Route Start Last Admin Trade Name Freq PRN Reason Stop Dose Admin Acetaminophen 1,000 mg 06/12/17 12:00 06/15/17 06:07 Tylenol PO 1,000 mg Q8H HILARIA Administration Celecoxib 200 mg 06/12/17 21:00 06/14/17 21:35 Celebrex PO 200 mg BID HILARIA Administration Docusate Sodium 100 mg 06/12/17 21:00 06/14/17 21:36 Colace 100mg Capsule PO Not Given BID HILARIA Lactated Ringer's 1,000 mls @ 100 mls/hr 06/12/17 12:00 06/15/17 04:25 Lr IV Not Given .Q10H HILARIA Metoclopramide HCl 5 mg 06/13/17 08:21 06/13/17 09:15 Reglan Inj IVP 5 mg Q6HR PRN Administration Nausea / Vomiting Ondansetron HCl 4 mg 06/12/17 11:23 06/13/17 11:52 Zofran Inj IVP 4 mg Q4H PRN Administration Nausea / Vomiting Oxycodone HCl 10 mg 06/12/17 11:23 06/14/17 18:18 Roxicodone PO 10 mg Q4HR PRN Administration PAIN Pantoprazole Sodium 40 mg 06/13/17 13:00 06/15/17 06:08 Protonix PO 40 mg QDAC HILARIA Administration Ranitidine HCl 150 mg 06/13/17 09:00 06/14/17 21:35 Zantac PO 150 mg BID HILARIA Administration Sertraline HCl 100 mg 06/13/17 09:00 06/14/17 08:40 Zoloft PO 100 mg DAILY HILARIA Administration Simethicone 80 mg 06/12/17 14:00 06/14/17 21:36 Mylicon PO Not Given TID HILARIA Sodium Chloride 10 ml 06/12/17 11:23 06/13/17 11:53 Normal Saline Flush 0.9% IVP 10 ml PRN PRN Administration NEEDED PER PROVIDER ORDERS Sodium Chloride 10 ml 06/12/17 14:00 06/15/17 06:08 Normal Saline Flush 0.9% IVP Not Given Q8HR HILARIA - Physical Exam Wound/Incisions: positive: Dressing dry and intact, No drainage General Appearance: positive: No acute distress, Alert Respiratory: positive: Chest non-tender, No respiratory distress, Breath sounds nml Cardiovascular: positive: Regular rate & rhythm, No murmur Abdomen: positive: Non-tender, Nml bowel sounds, Mass (U-2) Back: negative: CVA tenderness (R), CVA tenderness (L) Extremities: negative: Calf tenderness, Cody's sign/cords Impression/Plan - Problem List Problem List: S/P C/S Discharge to home
--- NOTE | 2017-06-15 09:16 | Discharge Plan ---
Discharge Plan Disposition: 01 Home, Self Care Condition: Good Diet: Regular Activity Restrictions: Pelvic rest 6 weeks Shower Restrictions: No Driving Restrictions: No Weight Bearing: Full Weight No Smoking: If you smoke, Please STOP! Call for help. Follow-up with: Klaudia Adrian ARNP [Primary Care Provider] -
[2017-06-15] MEDS: CELECOXIB 100 MG CAPSULE PO SCH (09:57)
[2017-06-15] MEDS: SIMETHICONE CHEW 80 MG TABLET PO SCH (09:57)
[2017-06-15] MEDS: DOCUSATE SODIUM 100 MG CAPSULE PO SCH (09:58)
[2017-06-15] MEDS: SERTRALINE 50 MG TABLET PO SCH (09:58)
--- NOTE | 2017-06-17 09:54 | DISCHARGE SUMMARY ---
DATE OF ADMISSION: 06/12/2017 DATE OF DISCHARGE: 06/15/2017 DIAGNOSES ON ADMISSION 1. A 31-year-old G7, P4-0-2-4 with a 39-0/7-week intrauterine . 2. Cervical mass. DIAGNOSES ON DISCHARGE 1. A 31-year-old G7, P4-0-2-5 status post primary delivery on 06/12/2017. 2. Normal recovery. BRIEF HISTORY: [facility] on [facility]2017 for a carin eduled primary delivery. The patient was noted to have a cervical mass that has been growing throughout her . She was seen by Maternal Medicine, as well as Gynecological Oncology , who felt that this mass was most likely a leiomyomata. The mass, however, was large enough that it was recommended that she undergo delivery as it would impede the fetus's descent out of the uterus. The patient underwent an unremarkable primary delivery on 06/12/2017 and delivered a viable male infant named Haja Palma. Apgars were 9 and 9 at one and five minutes, respectively, and he weig hed 4046 grams. EBL was 600 mL. Prevena VAC was placed. There were no complications. The patient's course has been remarkable for GERD-like symptoms causing nausea and vomitin g. This was controlled using a PPI, as well as an H2-sunil. Currently she is doing well and she is ambulating and tolerating a regular diet. She is urinating without difficulty, and her pain is contro lled with oral medications. Her lochia is improving, and again her nausea and vomiting have been reso lved. The baby, however, is down by 9%, and he is low risk for his bilirubin. The patient will be discharged to home on 06/15/2017, which is postoperative day #3. She has already been given prescriptions for postoperative pain control, including ibuprofen, Tylenol, Colace, and ox ycodone. The patient is to continue her routine Zoloft 100 mg 1 tab p.o. daily as well. She has an ap pointment to see me at [facility] for routine removal of her Prevena wound VAC next week. She is to call if she is having worsening fevers, chills, abdominal pain, or vaginal bleeding. JOB #: [id number] EXT JOB #:[id number]
== END 2017-06-15 12:55 | disposition home or self-care (01) | DRG 765 ==
LOC: FBP 06:34
PROVIDERS: ADMIT Obstetrics & Gynecology; ATTEND Obstetrics & Gynecology
PROC: 10D00Z1 Extraction of Products of Conception, Low, Open Approach (ICD-10-PCS; principal; 2017-06-12 09:30)
DX: O34.43 Maternal care for other abnormalities of cervix, third trimester (principal); Z68.41 Body mass index [BMI] 40.0-44.9, adult; Z37.0 Single live birth; D26.0 Other benign neoplasm of cervix uteri; O69.81X0 Labor and delivery complicated by cord around neck, without compression, not applicable or unspecified; O99.214 Obesity complicating childbirth; E66.01 Morbid (severe) obesity due to excess calories; O99.344 Other mental disorders complicating childbirth; F32.9 Major depressive disorder, single episode, unspecified; O99.824 Streptococcus B carrier state complicating childbirth; O99.62 Diseases of the digestive system complicating childbirth; K21.9 Gastro-esophageal reflux disease without esophagitis; Z3A.39 39 weeks gestation of pregnancy; Z86.001 Personal history of in-situ neoplasm of cervix uteri

== ENCOUNTER 2018-12-18 21:32 | Outpatient (CLI) | payer MEDICAID ==
--- NOTE | 2018-12-19 12:49 | Ultrasound Report ---
Reason: POSITIVE PREG TEST, DATING Procedure Date: 12/18/2018 Accession Number: [id number] / [id number] Procedure: US - OB Transvaginal CPT Code: FULL RESULT: EXAM: FIRST TRIMESTER OBSTETRIC ULTRASOUND (Less than 11 weeks) EXAM DATE: 12/18/2018 11:00 PM. CLINICAL HISTORY: Unsure last menstrual period, for dating LMP: Unknown. COMPARISONS: Ultrasound 10/29/2016 ([facility]), 02/04/2017 ([facility]), and 04/10/2017 ([facility]). TECHNIQUE: Transabdominal and transvaginal ultrasound examination with static image documentation. CLINICAL DATES: EGA 7 weeks 4 days with KRYSTYNA 08/02/2019 based on current ultrasound.. ASSESSMENT: Gestational Sac: Single intrauterine. Mean gestational sac diameter: 40.9 mm = 9 weeks 3 days. Embryo: CRL (crown-rump length) 13.1 mm = 7 weeks 4 days. Cardiac activity: 150 beats per minute. Yolk sac: 3 mm. Amniotic fluid: Not accurately assessed at this gestational age. Early placenta: Not visible at this gestational age. Other: No perigestational fluid collection demonstrated. MATERNAL STRUCTURES: Uterus: Anteverted. The cervix is abnormally enlarged. There is a solid irregular heterogeneous vascular mass involving the left cervix extending laterally. Current measurements are approximately 7.2 x 4.3 x 6.7 cm; previous measurements on 04/10/2017 were 6.4 x 3.7 x 6 cm. On the previous ultrasound a smaller non-echogenic mass measuring 2.4 x 1.8 x 2.7 cm was identified lateral to the large mass. This second mass is not definitely identified as a discrete structure on the current ultrasound. There is a stable 1.2 x 1.7 x 1.5 cm hypoechoic area to the right of the gestational sac also present in 2017, possibly an intramural fibroid. Right Ovary/Adnexa: The ovary measures 2.3 x 2 x 1.5 cm, volume 3.6 cc. Unremarkable. Left Ovary/Adnexa: The ovary measures 3.3 x 2.2 x 2.8 cm, volume 10.6 cc. Unremarkable. Free Fluid: None. Other: None. IMPRESSION: 1. Single intrauterine at EGA 7 weeks 4 days with KRYSTYNA 08/02/2019 based on crown-rump length. 2. Assigned dating is KRYSTYNA 08/02/2019 based on the current ultrasound. 3. A large cervical mass/presumed fibroid is again identified not appreciably changed in size or echotexture since the prior 04/10/2017 ultrasound. A second more lateral mass/probable fibroid previously seen is not identified on the current study. RADIA
== END 2018-12-18 21:33 | disposition home or self-care (01) ==
LOC: DI 21:32
PROVIDERS: ATTEND Obstetrics & Gynecology
DX: Z32.01 Encounter for pregnancy test, result positive (principal); O99.89 Other specified diseases and conditions complicating pregnancy, childbirth and the puerperium; N88.9 Noninflammatory disorder of cervix uteri, unspecified; Z3A.01 Less than 8 weeks gestation of pregnancy
CPT/HCPCS: 76801; 76817

== ENCOUNTER 2018-12-30 08:00 | Outpatient (CLI) | payer MEDICAID | END 2018-12-30 23:59 | disposition home or self-care (01) | LOC: LAB.R 08:00 | PROVIDERS: ATTEND Obstetrics & Gynecology | DX: Z34.80 Encounter for supervision of other normal pregnancy, unspecified trimester (principal) | CPT/HCPCS: 87491; 87591 ==

== ENCOUNTER 2019-01-20 15:05 | Outpatient (CLI) | payer MEDICAID ==
[2019-01-20 15:29] LABS: MUDS CUTOFF CONCENTRATIONS CUTOFF CONC BELOW:
[2019-01-20 15:36] LABS: BASOPHILS % (AUTO) 0.3 %; EOSINOPHILS # (AUTO) 0.1 10^3/uL (0.0-0.7); HGB - HEMOGLOBIN 13.6 g/dL (12.0-16.0); LYMPHOCYTES # (AUTO) 1.5 10^3/uL (1.5-3.5); LYMPHOCYTES % (AUTO) 21.4 %; MEAN CORPUSCULAR HEMOGLOBIN 31.7 pg (27.0-31.0); MEAN CORPUSCULAR HGB CONC 33.7 g/dL (32.0-36.0); MEAN CORPUSCULAR VOLUME 94.1 fL (81.0-99.0); MEAN PLATELET VOLUME 7.7 fL (7.9-10.8); MONOCYTES # (AUTO) 0.5 10^3/uL (0.0-1.0); MONOCYTES % (AUTO) 6.6 %; NEUTROPHILS # (AUTO) 4.9 10^3/uL (1.5-6.6); NEUTROPHILS % (AUTO) 69.7 %; PLT - PLATELET COUNT 232 10^3/uL (130-450)
[2019-01-20 16:12] LABS: HB2 TOTAL 14.4 g/dL; HEMOGLOBIN A1C 0.47 g/dL
[2019-01-20 16:18] LABS: HEMOGLOBIN A1C % 5.1 % (4.6-6.2)
[2019-01-20 16:23] LABS: BILIRUBIN,URINE NEGATIVE (NEGATIVE); GLUCOSE, URINE (UA) NEGATIVE (NEGATIVE); KETONES,URINE (UA) NEGATIVE (NEGATIVE); LEUKOCYTE ESTERASE, URINE NEGATIVE (NEGATIVE); NITRITE,URINE NEGATIVE (NEGATIVE); OCCULT BLOOD,URINE NEGATIVE (NEGATIVE); PROTEIN,URINE NEGATIVE (NEGATIVE); UROBILINOGEN,URINE 0.2 (NORMAL) E.U./dL (NORMAL)
[2019-01-20 16:37] LABS: AMPHETAMINE SCREEN,URINE NEGATIVE (NEGATIVE); BENZODIAZEPINES SCREEN, URINE NEGATIVE (NEGATIVE); COCAINE SCREEN URINE NEGATIVE (NEGATIVE); METHADONE SCREEN, URINE NEGATIVE (NEGATIVE); METHAMPHETAMINES SCREEN, URINE NEGATIVE (NEGATIVE); OPIATE SCREEN, URINE NEGATIVE (NEGATIVE); OXYCODONE SCREEN, URINE NEGATIVE (NEGATIVE); PROPOXYPHENE SCREEN, URINE NEGATIVE (NEGATIVE); TRICYCLIC ANTIDEPRESSANT,URINE NEGATIVE (NEGATIVE)
[2019-01-20 16:38] LABS: CLARITY,URINE CLEAR (CLEAR)
[2019-01-20 16:41] LABS: BACTERIA,URINE None Seen /HPF (None Seen); RBC,URINE 0-5 /HPF (0-5); SQUAMOUS EPITHELIAL CELL,UR FEW Squamous (<= Few)
[2019-01-21 13:02] LABS: HEPATITIS B SURFACE ANTIGEN NON-REACTIVE (NON-REACTIVE); HEPATITIS C ANTIBODY NON-REACTIVE (NON-REACTIVE)
[2019-01-21 14:53] LABS: HIV AG/AB 4TH GEN NON-REACTIVE (NON-REACTIVE)
== END 2019-01-20 15:06 | disposition home or self-care (01) ==
LOC: LAB 15:05
PROVIDERS: ATTEND Obstetrics & Gynecology
DX: Z34.80 Encounter for supervision of other normal pregnancy, unspecified trimester (principal)
CPT/HCPCS: 36415; 80306; 81001; 81599; 83036; 85025; 85027; 86592; 86762; 86803; 86850; 86900; 86901; 87086; 87340; 87389

== ENCOUNTER 2019-03-02 12:58 | Outpatient (CLI) | payer MEDICAID ==
--- NOTE | 2019-03-03 12:59 | Ultrasound Report ---
Reason: SCREENING,OTHER SPECIFIED,SUPERVISION OF Procedure Date: 03/02/2019 Accession Number: [id number] / [id number] Procedure: US - OB Detailed Eval CPT Code: FULL RESULT: EXAM: COMPLETE OBSTETRICAL ULTRASOUND EXAM DATE: 03/02/2019 05:19 PM. CLINICAL HISTORY: anatomic survey. COMPARISON: OB DETAILED EVAL 02/04/2017 12:48 PM. TECHNIQUE: Real-time sonographic evaluation of the fetus performed by the supervisor ore dressing. Multiple event sales representative static images were saved for review. DATING: Established EGA 20 weeks 1 day with KRYSTYNA 07/19/2019 based on working due date. EGA 18 weeks 5 days with KRYSTYNA 08/02/2019 based on prior ultrasound. EGA 18 weeks 3 days with KRYSTYNA 07/31/2019 based on the current ultrasound. GENERAL EVALUATION [place] . Cardiac activity: 155 bpm. movement: Visualized. Presentation: Variable Placenta: Anterior position. No evidence for previa. Umbilical cord: 3 vessel cord. Central placental cord origin. Amniotic fluid: Subjectively normal. MVP 5.7 cm as measured on submitted images. BIOMETRY Bi-Parietal Diameter (BPD): 4.1 cm, 18 weeks 3 days Head Circumference (HC): 15.8 cm, 18 weeks 3 days Abdominal Circumference (AC): 13.5 cm, 18 weeks 6 days Femur Length (FL): 2.6 cm, 17 weeks 6 days Estimated Weight: 241 g, below the third percentile for 20 weeks 1 day. ANATOMY The intracranial structures, profile, face/nose/lips, abdominal wall and cord insertion, diaphragm, kidneys, bladder, and extremities were visualized and demonstrate no abnormality. The spine, the heart, stomach, and bladder relationship as well as evaluation of the heart and its outflow tracts are incomplete. Real-time evaluation of open hands was also insufficient. MATERNAL STRUCTURES Uterus: Redemonstration of a hypoechoic stable mass measuring up to 1.9 cm, previously felt to represent a fibroid. Cervix: While the cervix is closed it is once again demonstrated to be remarkably abnormal and masslike in appearance, Transabdominal length 8.9 cm. Right ovary/adnexa: Unremarkable. Left ovary/adnexa: Unremarkable. Free fluid: None. IMPRESSION: 1. [place] live intrauterine with gestational age 20 weeks 1 day based on obstetric provider stated working due date. 2. Estimated weight is below the 3rd percentile for the assigned working due date. Note is made of an unsure LMP. Given concordance with prior ultrasound and normal interval growth consideration for re-dating should be given if clinically appropriate. 3. Limited study with incomplete anatomy survey. While no abnormalities detected, evaluation of the entire spine, entire heart and heart-stomach relationship is incomplete as well as real-time view of open hands. 4. Persistent appearance of a masslike abnormal cervix. RADIA The call report notification system was initiated by Dr. Geovanny Mathur at 12:52 PM on 03/03/2019. ADDENDUM: 03/03/19 13:09 The above call report findings were discussed with Mervat Leiva on behalf of Macy Huerta by Dr. Geovanny Mathur at 01:09 PM on 03/03/2019.
== END 2019-03-02 12:59 | disposition home or self-care (01) ==
LOC: DI 12:58
PROVIDERS: ATTEND Obstetrics & Gynecology
DX: Z34.82 Encounter for supervision of other normal pregnancy, second trimester (principal); Z36.89 Encounter for other specified antenatal screening
CPT/HCPCS: 76811

== ENCOUNTER 2019-06-24 09:48 | Outpatient (CLI) | payer MEDICAID ==
[2019-06-24 11:22] LABS: HGB - HEMOGLOBIN 12.7 g/dL (12.0-16.0)
== END 2019-06-24 09:49 | disposition home or self-care (01) ==
LOC: LAB 09:48
PROVIDERS: ATTEND Specialist
DX: Z34.83 Encounter for supervision of other normal pregnancy, third trimester (principal)
CPT/HCPCS: 36415; 82950; 85014; 85018

== ENCOUNTER 2020-08-03 18:52 | Emergency (ER) | payer MEDICAID ==
[2020-08-03] MEDS ORDERED: KETOROLAC 60 MG/2 ML VIAL IM STA (19:51)
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
[2020-08-03 21:04] VITALS: BP 135/84
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
== END 2020-08-03 21:03 | disposition home or self-care (01) ==
LOC: ED 18:52
DX: S22.42XA Multiple fractures of ribs, left side, initial encounter for closed fracture (principal); V86.99XA Unspecified occupant of other special all-terrain or other off-road motor vehicle injured in nontraffic accident, initial encounter; Y93.I9 Activity, other involving external motion
CPT/HCPCS: 96372; 99283; 99284

== ENCOUNTER 2020-11-13 19:09 | Outpatient (CLI) | payer OTHER, MEDICAID | END 2020-11-13 19:10 | disposition critical access hospital (66) | LOC: EMS 19:09 | PROVIDERS: ATTEND Emergency Medicine | DX: H92.02 Otalgia, left ear (principal); Y04.0XXA Assault by unarmed brawl or fight, initial encounter | CPT/HCPCS: A0425; A0429; A0999 ==

== ENCOUNTER 2020-11-13 19:30 | Emergency (ER) | payer OTHER, MEDICAID ==
[2020-11-13 19:42] VITALS: BP 128/81
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
--- NOTE | 2020-11-13 21:18 | CT Report ---
PROCEDURE: HEAD WO INDICATIONS: head inj TECHNIQUE: Noncontrast 4.5 mm thick angled axial sections acquired from the foramen magnum to the vertex. For r adiation dose reduction, the following was used: automated exposure control, adjustment of mA and/or kV according to patient size. COMPARISON: None. FINDINGS: Image quality: Excellent. CSF spaces: Basal cisterns are patent. No extra-axial fluid collections. Ventricles are normal in size and shape. Brain: No midline shift. No intracranial masses or hemorrhage. Reyna-white matter interface is norm al. Skull and face: Calvarium and visualized facial bones are intact, without suspicious lesions. Sinuses: Visualized sinuses and mastoids are clear. IMPRESSION: No acute intracranial process. Reviewed by: Ramon Hutson MD on 11/13/2020 9:16 PM PDT Approved by: Ramon Hutson MD on 11/13/2020 9:16 PM PDT Station ID: [id number]
--- NOTE | 2020-11-13 21:22 | CT Report ---
PROCEDURE: MAXILLOFACIAL WO INDICATIONS: head TECHNIQUE: Noncontrast 1.5 mm thick axial images acquired from the mandible through the frontal sinuses, with co desire and sagittal reformatting. For radiation dose reduction, the following was used: automated ex posure control, adjustment of mA and/or kV according to patient size. COMPARISON: None. FINDINGS: Image quality: Excellent. Bones and teeth: Orbital paris are intact. Sinus paris show no fracture or deformity. Nasal bones and septum are intact. Visualized portions of the mandible demonstrate no fractures or subluxation. Zygomatic arches are intact. Pterygoid plates are intact. Visualized portions of the skull base an d auditory canals are intact. Sinuses: Paranasal sinuses are aerated, without fluid levels, mucosal thickening, or mucoceles. Mas toid air cells are aerated. Soft tissues: There is mild left periorbital soft tissue edema. Vascular: Visualized vascular structures appear normal in the absence of contrast. Bony vascular fo ramina and canals are intact. IMPRESSION: Mild left periorbital soft tissue edema. No fracture. Reviewed by: Ramon Vu MD on 11/13/2020 9:21 PM PDT Approved by: Ramon Vu MD on 11/13/2020 9:21 PM PDT Station ID: [id number]
[2020-11-13] MEDS ORDERED: HYDROcod/ACET 5/325 Prepack 4 PO STA (21:37)
== END 2020-11-13 21:54 | disposition home or self-care (01) ==
LOC: ED 19:30
DX: S00.83XA Contusion of other part of head, initial encounter (principal); S49.92XA Unspecified injury of left shoulder and upper arm, initial encounter; T76.11XA Adult physical abuse, suspected, initial encounter; F17.200 Nicotine dependence, unspecified, uncomplicated
CPT/HCPCS: 99284

== ENCOUNTER 2021-05-10 11:40 | Emergency (ER) | payer MEDICAID, OTHER ==
[2021-05-10 12:02] VITALS: BP 133/101
[2021-05-10] MEDS ORDERED: KETOROLAC 60 MG/2 ML VIAL IM STA (14:32)
--- NOTE | 2021-05-10 14:35 | ED Physician Documentation ---
History of Present Illness - Stated complaint Stated Complaint: BACK PX - Chief complaint Chief Complaint: Back Pain - History obtained from History obtained from: Patient - Additonal information Additional information: Here w/ generalized mid to lower back pain for several days. Has had in the past but never to this extent. 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 Denies any fever, saddle anesthesia, dysuria, change in bowel or bladder, lower ext weakness or paraesthesias, or IVDU. Pain worse w/ movement/bending/lifting and better w/ rest. Using lidocaine patches w/o relief but no other treatment. Review of Systems Ten Systems: 10 systems reviewed and negative GI: denies: Abdominal Pain, Abdominal Swelling, Nausea, Vomiting, Constipation, Diarrhea : reports: Control (IUD). denies: Dysuria, Frequency, Hesitancy Musculoskeletal: reports: Back pain Neurologic: denies: Generalized weakness, Focal weakness, Numbness, Difficulty speaking, Near syncope, Syncope PD PAST MEDICAL HISTORY - Past Medical History Cardiovascular: None Respiratory: None Endocrine/Autoimmune: None GI: None : Other HEENT: None Psych: Depression Musculoskeletal: None Derm: None - Past Surgical History Past Surgical History: Yes - Present Medications Home Medications: Ambulatory Orders Medication Instructions Recorded Confirmed Ibuprofen [Motrin] 1 tablet PO Q8H PRN #30 tablet 05/10/21 Metaxalone 800 mg PO TID PRN #30 tablet 05/10/21 - Allergies Allergies/Adverse Reactions: Allergies Allergy/AdvReac Type Severity Reaction Status Date / Time No Known Drug Allergies Allergy Verified 05/10/21 12:02 - Social History Does the pt smoke?: Yes Smoking Status: Light tobacco smoker Does the pt drink ETOH?: Yes Does the pt have substance abuse?: No - Immunizations Immunizations are current?: Yes - POLST Patient has POLST: No PD ED PE NORMAL - Vitals Vital signs reviewed: Yes - General General: Alert and oriented X 3, No acute distress, Well developed/nourished - HEENT HEENT: Atraumatic, Moist mucous membranes, Pharynx benign - Neck Neck: Supple, no meningeal sign, No JVD - Cardiac Cardiac: RRR, No murmur - Respiratory Respiratory: No respiratory distress, Clear bilaterally - Abdomen Abdomen: Normal bowel sounds, Soft, Non tender, Non distended - Back Back: No CVA TTP, No spinal TTP, Other (bilat paravertebral muscle tenderness and tightness thoracolumbar spine. ) - Derm Derm: Normal color, Warm and dry, No rash - Extremities Extremities: No deformity, No tenderness to palpate, Normal ROM s pain, No edema, No calf tenderness / cord - Neuro Neuro: Alert and oriented X 3, media relations specialist 2-12 intact, No motor deficit, No sensory deficit, Normal speech Eye Opening: Spontaneous Motor: Obeys Commands Verbal: Oriented GCS Score: 15 - Psych Psych: Normal mood, Normal affect Results - Vitals Vitals: Vital Signs - 24 hr 05/10/21 12:00 Temperature 36.4 C L Heart Rate 112 H Respiratory 16 Rate Blood Pressure 133/101 H O2 Saturation 98 Oxygen O2 Source Room air PD MEDICAL DECISION MAKING - ED course Complexity details: reviewed old records, re-evaluated patient, d/w patient ED course: Pt presents w/ generalized back pain that is consistent w/ muscle strain. She has no fever, signs of infection, signs of cauda equina, or bowel/bladder changes. No hx/o IVDU. She has IUD and denies possibility of . We gave her 30mg of IM toradol w/ some improvement. She was advised to continue prn ibuprofen and tylenol, light stretch, heating pad and will prescribe skelaxin prn for spasms. Expectant management discussed, encouraged fup w/ PCP in 2-3 weeks if no improvement. Departure - Departure Disposition: 01 Home, Self Care Clinical Impression: Back pain Condition: Good Instructions: ED Low Back Pain Injury, ANTI-INFLAMMATORY, General Prescriptions: Metaxalone 800 mg PO TID PRN #30 tablet PRN Reason: Spasms Ibuprofen [Motrin] 1 tablet PO Q8H PRN #30 tablet PRN Reason: PAIN &/OR FEVER
== END 2021-05-10 14:55 | disposition home or self-care (01) ==
LOC: ED 11:40
DX: M54.5 Low back pain (principal); F17.200 Nicotine dependence, unspecified, uncomplicated
CPT/HCPCS: 96372; 99283; 99284

== ENCOUNTER 2021-06-04 11:35 | Outpatient (CLI) | payer MEDICAID | END 2021-06-04 11:36 | disposition EMS.NT | LOC: EMS 11:35 | DX: S00.12XA Contusion of left eyelid and periocular area, initial encounter (principal); Y04.2XXA Assault by strike against or bumped into by another person, initial encounter; Y92.009 Unspecified place in unspecified non-institutional (private) residence as the place of occurrence of the external cause ==

== ENCOUNTER 2022-06-24 20:34 | Emergency (ER) | payer MEDICAID ==
--- OUTSIDE RECORDS SUMMARY | 2022-06-24 21:35 | EXTERNAL MEDICAL SUMMARY RPT | Continuity of Care Document ---
:1985 Author Organization [facility] Address [address] [place] [address] Phone Allergies and Intolerances date description facility type (no date) No Known Drug Allergies [facility] (unkn own) Encounters No information. Functional Status No information. Immunizations No information. Medications No information. Problems No information. Procedures No information. Results/Labs test date author facility value unit interpret ation Result panel 1 (unknown) (no date) (unknown) (unknown) (no value) (units (un known) unknown) (unknown) (no date) (unknown) (unknown) [id number] (units (unkn own) unknown) (unknown) (no date) (unknown) (unknown) 06/02/22 (units (unkn own) unknown) (unknown) (no date) (unknown) (unknown) [id number] (units (unk nown) [address] unknown) (unknown) (no date) (unknown) (unknown) Accession (units (unk nown) Number: unknown) [id number] (unknown) (no date) (unknown) (unknown) Age/Sex: 36 / (units (unknown) F Date of unknown) Service: (unknown) (no date) (unknown) (unknown) [place], [place] (units (unknown) [id number] unknown) (unknown) (no date) (unknown) (unknown) Approved by: (units ( unknown) anjum Smith) Chavo on 06/02/2022 at 20:36 (unknown) (no date) (unknown) (unknown) Bones: (units (unkn own) Subacute unknown) comminuted fracture of the 5th digit proximal phalanx. The (unknown) (no date) (unknown) (unknown) COMPARISON: (units (u nknown) None. unknown) (unknown) (no date) (unknown) (unknown) : (units (unkn own) 1985 unknown) Acct:[id number] (unknown) (no date) (unknown) (unknown) Dictated by: (units ( unknown) Alexx Healy unknown) Chavo on 06/02/2022 at 20:33 (unknown) (no date) (unknown) (unknown) FINDINGS: (units (unk nown) unknown) (unknown) (no date) (unknown) (unknown) IMPRESSION: (units (u nknown) unknown) (unknown) (no date) (unknown) (unknown) INDICATIONS: (units ( unknown) toe pain unknown) (unknown) (no date) (unknown) (unknown) [facility] (unknown) (no date) (unknown) (unknown) Loc: ED (units (unkn own) unknown) (unknown) (no date) (unknown) (unknown) Ordering (units (unkn own) Provider: unknown) Bobbi Ogden MD (unknown) (no date) (unknown) (unknown) PROCEDURE: XR (units (unknown) TOE LT MIN 2V unknown) (unknown) (no date) (unknown) (unknown) Patient: (units (unkn own) Charlie Stafford unknown) MR#: [id number] (unknown) (no date) (unknown) (unknown) Procedure: XR (units (unknown) toe LT min 2V unknown) (unknown) (no date) (unknown) (unknown) Signed (units (unkn own) unknown) (unknown) (no date) (unknown) (unknown) Soft tissues: (units (unknown) No suspicious unknown) soft tissue densities. (unknown) (no date) (unknown) (unknown) Subacute (units (unkn own) fracture of the unknown) 5th digit proximal phalanx. (unknown) (no date) (unknown) (unknown) TECHNIQUE: (units (un known) Frontal view of unknown) the foot, two views of the left foot 5th digit (unknown) (no date) (unknown) (unknown) XRay Report (units (u nknown) unknown) (unknown) (no date) (unknown) (unknown) fracture is (units (u nknown) unknown) (unknown) (no date) (unknown) (unknown) mildly (units (unkn own) displaced. unknown) There is adjacent bony callus. No definite involvement of (unknown) (no date) (unknown) (unknown) proximal or (units (u nknown) distal unknown) articular surface identified. Mild bunion deformity. (unknown) (no date) (unknown) (unknown) the (units (unkn own) unknown) Result panel 2 (unknown) (no (unknown) (unknown) (no value) (units (unk nown) date) unknown) (unknown) (no (unknown) (unknown) (1-3) #30 tabs (units (unknown) date) unknown) (unknown) (no (unknown) (unknown) [id number] (units (unkno wn) date) unknown) (unknown) (no (unknown) (unknown) 1 tab PO DAILY (units (unknown) date) unknown) (unknown) (no (unknown) (unknown) 06/02/22 18:49 (units (unknown) date) unknown) (unknown) (no (unknown) (unknown) 06/02/22 (units (unkno wn) date) unknown) (unknown) (no (unknown) (unknown) 100 mg PO DAILY (units (unknown) date) Qty: 60 6RF unknown) (unknown) (no (unknown) (unknown) 18:41 (units (unkno wn) date) unknown) (unknown) (no (unknown) (unknown) 600 mg PO Q6HR (units (unknown) date) PRN (Reason: unknown) Fever/Mild Pain (1-3)) Qty: 30 0RF (unknown) (no (unknown) (unknown) ? (units (unkno wn) date) unknown) (unknown) (no (unknown) (unknown) Age/Sex: 36 / F (units (unknown) date) unknown) (unknown) (no (unknown) (unknown) Allergies (units (unkn own) date) unknown) (unknown) (no (unknown) (unknown) Allergy/AdvReac (units (unknown) date) Type Severity unknown) Reaction Status Date / Time (unknown) (no (unknown) (unknown) Anxiety (-2018) (units (unknown) date) unknown) (unknown) (no (unknown) (unknown) Blood Pressure (units (unknown) date) 132/81 06/02/22 unknown) 18:41 (unknown) (no (unknown) (unknown) Blood Pressure (units (unknown) date) 132/81 unknown) (unknown) (no (unknown) (unknown) Bones:? Subacute (units (unknown) date) comminuted unknown) fracture of the 5th digit proximal phalanx.? The (unknown) (no (unknown) (unknown) Brother (units (unkno wn) date) Hypertension unknown) (unknown) (no (unknown) (unknown) Chicken pox (units (un known) date) () unknown) (unknown) (no (unknown) (unknown) Chief Complaint: (units (unknown) date) Extremity Injury, unknown) Lower (unknown) (no (unknown) (unknown) Course (units (unkno wn) date) unknown) (unknown) (no (unknown) (unknown) : 1985 (units (unknown) date) Acct:[id number] unknown) (unknown) (no (unknown) (unknown) Date of Service: (units (unknown) date) 06/02/22 unknown) (unknown) (no (unknown) (unknown) Departure (units (unkn own) date) unknown) (unknown) (no (unknown) (unknown) Depression (units (unk nown) date) () unknown) (unknown) (no (unknown) (unknown) Dictated by: (units (u nknown) date) Alexx Healy unknownJoe Tony on 06/02/2022 at 20:33 ? ? (unknown) (no (unknown) (unknown) Discharge Plan (units (unknown) date) unknown) (unknown) (no (unknown) (unknown) ED Orders (units (unkn own) date) unknown) (unknown) (no (unknown) (unknown) ER Physician: (units ( unknown) date) Bobbi Ogden unknown) (unknown) (no (unknown) (unknown) Emergency Report (units (unknown) date) unknown) (unknown) (no (unknown) (unknown) Exam (units (unkno wn) date) unknown) (unknown) (no (unknown) (unknown) FINDINGS:? 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 (units (u nknown) date) unknown) (unknown) (no (unknown) (unknown) Imaging Data (units (u nknown) date) unknown) (unknown) (no (unknown) (unknown) Initial Vital (units ( unknown) date) Signs unknown) (unknown) (no (unknown) (unknown) Initial Vital (units ( unknown) date) Signs: unknown) (unknown) (no (unknown) (unknown) [facility] (units (unknown) date) [address] [place] [address] unknown) [place] [address] (unknown) (no (unknown) (unknown) MDM - Extremity (units (unknown) date) Injury (Lower) unknown) (unknown) (no (unknown) (unknown) Medical History (units (unknown) date) (Updated 09/22/20 unknown) @ 08:49 by [employer]) (unknown) (no (unknown) (unknown) Medication (units (unk nown) date) Instructions unknown) Recorded Confirmed (unknown) (no (unknown) (unknown) Medication (units (unk nown) date) Instructions unknown) Recorded (unknown) (no (unknown) (unknown) Migraines (-1999) (units (unknown) date) unknown) (unknown) (no (unknown) (unknown) Miscellaneous,Doc (units (unknown) date) MD uriel [Primary unknown) Care Provider] (unknown) (no (unknown) (unknown) Mode of arrival: (units (unknown) date) Ambulatory unknown) (unknown) (no (unknown) (unknown) No Action (units (unkn own) date) unknown) (unknown) (no (unknown) (unknown) No Known Drug (units ( unknown) date) Allergies Allergy unknown) Verified 03/04/20 10:37 (unknown) (no (unknown) (unknown) Ordered: (units (unkno wn) date) unknown) (unknown) (no (unknown) (unknown) Orders (units (unkno wn) date) unknown) (unknown) (no (unknown) (unknown) Oxygen Delivery (units (unknown) date) Method 06/02/22 unknown) 18:41 (unknown) (no (unknown) (unknown) Oxygen Delivery (units (unknown) date) Method Room Air unknown) (unknown) (no (unknown) (unknown) Patient History (units (unknown) date) unknown) (unknown) (no (unknown) (unknown) Patient: (units (unkno wn) date) Charlie Stafford unknown) MR#: [id number] (unknown) (no (unknown) (unknown) Prescriptions: (units (unknown) date) unknown) (unknown) (no (unknown) (unknown) Previous Rx's (units ( unknown) date) unknown) (unknown) (no (unknown) (unknown) Previous (units (unknown) date) section unknown) (-08/12/17) (unknown) (no (unknown) (unknown) Pulse Oximetry (units (unknown) date) 100 06/02/22 18:41 unknown) (unknown) (no (unknown) (unknown) Pulse Oximetry (units (unknown) date) 100 unknown) (unknown) (no (unknown) (unknown) Pulse Rate 92 H (units (unknown) date) 06/02/22 18:41 unknown) (unknown) (no (unknown) (unknown) Pulse Rate 92 H (units (unknown) date) unknown) (unknown) (no (unknown) (unknown) Radiologist's (units ( unknown) date) Impression: unknown) (unknown) (no (unknown) (unknown) Referrals: (units (unk nown) date) unknown) (unknown) (no (unknown) (unknown) Related Data (units (u nknown) date) unknown) (unknown) (no (unknown) (unknown) Respiratory Rate (units (unknown) date) 16 06/02/22 18:41 unknown) (unknown) (no (unknown) (unknown) Respiratory Rate (units (unknown) date) 16 unknown) (unknown) (no (unknown) (unknown) Signed By: (units (unk nown) date) unknown) (unknown) (no (unknown) (unknown) Smoking Status: (units (unknown) date) Current every day unknown) smoker (unknown) (no (unknown) (unknown) Social History (units (unknown) date) (Reviewed 02/23/20 unknown) @ 00:59 by Agustín John MD) (unknown) (no (unknown) (unknown) Soft tissues:? No (units (unknown) date) suspicious soft unknown) tissue densities.? (unknown) (no (unknown) (unknown) Source: patient (units (unknown) date) unknown) (unknown) (no (unknown) (unknown) Stated Complaint: (units (unknown) date) [place]/Swelling unknown) in Extremeties (unknown) (no (unknown) (unknown) Subacute fracture (units (unknown) date) of the 5th digit unknown) proximal phalanx. (unknown) (no (unknown) (unknown) Substance Use (units ( unknown) date) Type: marijuana unknown) and methamphetamine (unknown) (no (unknown) (unknown) Surgical History (units (unknown) date) (Reviewed 02/23/20 unknown) @ 00:59 by Agustín John MD) (unknown) (no (unknown) (unknown) Temperature 97.8 (units (unknown) date) F 06/02/22 18:41 unknown) (unknown) (no (unknown) (unknown) Temperature 97.8 (units (unknown) date) F unknown) (unknown) (no (unknown) (unknown) Time Seen by (units (u nknown) date) Provider: 06/02/22 unknown) 20:19 (unknown) (no (unknown) (unknown) Uterine myoma (units ( unknown) date) (-2016) unknown) (unknown) (no (unknown) (unknown) Vital Signs - 8 (units (unknown) date) hr unknown) (unknown) (no (unknown) (unknown) Vital Signs (units (un known) date) unknown) (unknown) (no (unknown) (unknown) Vital signs: (units (u nknown) date) unknown) (unknown) (no (unknown) (unknown) XR toe LT min 2V (units (unknown) date) Stat unknown) (unknown) (no (unknown) (unknown) XR toe: (units (unkno wn) date) unknown) (unknown) (no (unknown) (unknown) alcohol intake (units (unknown) date) frequency: 0-2 unknown) drinks per day (unknown) (no (unknown) (unknown) fracture is (units (un known) date) unknown) (unknown) (no (unknown) (unknown) ibuprofen 600 mg (units (unknown) date) Tablet unknown) (unknown) (no (unknown) (unknown) ibuprofen 600 mg (units (unknown) date) tablet 600 mg PO unknown) Q6HR PRN Fever/Mild Pain 07/29/19 (unknown) (no (unknown) (unknown) mildly (units (unkno wn) date) displaced.? There unknown) is adjacent bony callus.? No definite involvement of (unknown) (no (unknown) (unknown) prenat.vits,diego,m (units (unknown) date) [id number] 1 unknown) tab PO DAILY 04/28/19 10/21/19 (unknown) (no (unknown) (unknown) prenat.vits,diego,m (units (unknown) date) [id number] unknown) tablet (unknown) (no (unknown) (unknown) proximal or (units (un known) date) distal articular unknown) surface identified.? Mild bunion deformity. (unknown) (no (unknown) (unknown) sertraline 50 mg (units (unknown) date) tablet (Zoloft) unknown) 100 mg PO DAILY #60 tabs 04/04/20 (unknown) (no (unknown) (unknown) sertraline (units (unk nown) date) [Zoloft] 50 mg unknown) tablet (unknown) (no (unknown) (unknown) the (units (unkno wn) date) unknown) (unknown) (no (unknown) (unknown) tobacco type: (units ( unknown) date) cigarettes unknown) Result panel 3 (unknown) (no date) (unknown) (unknown) (no value) (units (un known) unknown) (unknown) (no date) (unknown) (unknown) [id number] (units (unkn own) unknown) (unknown) (no date) (unknown) (unknown) 06/02/22 (units (unkn own) unknown) (unknown) (no date) (unknown) (unknown) [address] (units (unk nown) [address] unknown) (unknown) (no date) (unknown) (unknown) Accession (units (unk nown) Number: unknown) [id number] (unknown) (no date) (unknown) (unknown) Age/Sex: 36 / (units (unknown) F Date of unknown) Service: (unknown) (no date) (unknown) (unknown) [place], [place] (units (unknown) [id number] unknown) (unknown) (no date) (unknown) (unknown) Approved by: (units ( unknown) anjum Mcgovern) Chavo on 06/02/2022 at 22:02 (unknown) (no date) (unknown) (unknown) Bones: No (units (unk nown) fractures or unknown) dislocations. Ankle mortise is normally aligned. No (unknown) (no date) (unknown) (unknown) COMPARISON: (units (u nknown) None. unknown) (unknown) (no date) (unknown) (unknown) : (units (unkn own) 1985 unknown) Acct:[id number] (unknown) (no date) (unknown) (unknown) Dictated by: (units ( unknown) anjum Mcgovern) Chavo on 06/02/2022 at 22:01 (unknown) (no date) (unknown) (unknown) FINDINGS: (units (unk nown) unknown) (unknown) (no date) (unknown) (unknown) IMPRESSION: No (units (unknown) osseous trauma unknown) found, normal alignment. (unknown) (no date) (unknown) (unknown) INDICATIONS: (units ( unknown) swelling unknown) (unknown) (no date) (unknown) (unknown) [facility] (unknown) (no date) (unknown) (unknown) Loc: ED (units (unkn own) unknown) (unknown) (no date) (unknown) (unknown) Ordering (units (unkn own) Provider: unknown) Bobbi Ogden MD (unknown) (no date) (unknown) (unknown) PROCEDURE: XR (units (unknown) ANKLE LT MIN 3V unknown) (unknown) (no date) (unknown) (unknown) Patient: (units (unkn own) Charlie Stafford unknown) MR#: [id number] (unknown) (no date) (unknown) (unknown) Procedure: XR (units (unknown) ankle LT min 3V unknown) (unknown) (no date) (unknown) (unknown) Signed (units (unkn own) unknown) (unknown) (no date) (unknown) (unknown) Soft tissues: (units (unknown) No tibiotalar unknown) joint effusion. Achilles tendon appears normal. (unknown) (no date) (unknown) (unknown) TECHNIQUE: 3 (units ( unknown) views of the unknown) ankle were acquired. (unknown) (no date) (unknown) (unknown) XRay Report (units (u nknown) unknown) (unknown) (no date) (unknown) (unknown) bony lesions. (units (unknown) unknown) (unknown) (no date) (unknown) (unknown) suspicious (units (un known) unknown) Result panel 4 (unknown) (no (unknown) (unknown) (no value) (units (unk nown) date) unknown) (unknown) (no (unknown) (unknown) (1-3) #30 tabs (units (unknown) date) unknown) (unknown) (no (unknown) (unknown) [id number] (units (unkno wn) date) unknown) (unknown) (no (unknown) (unknown) 1 tab PO DAILY (units (unknown) date) unknown) (unknown) (no (unknown) (unknown) 06/02/22 18:49 (units (unknown) date) unknown) (unknown) (no (unknown) (unknown) 06/02/22 (units (unkno wn) date) unknown) (unknown) (no (unknown) (unknown) 100 mg PO DAILY (units (unknown) date) Qty: 60 6RF unknown) (unknown) (no (unknown) (unknown) 18:41 (units (unkno wn) date) unknown) (unknown) (no (unknown) (unknown) 36-year-old woman (units (unknown) date) comes in with left unknown) foot and ankle swelling. She notes back 2 (unknown) (no (unknown) (unknown) 5th proximal (units (u nknown) date) phalanx fracture unknown) that is mildly displaced but has nice callus (unknown) (no (unknown) (unknown) 600 mg PO Q6HR (units (unknown) date) PRN (Reason: unknown) Fever/Mild Pain (1-3)) Qty: 30 0RF (unknown) (no (unknown) (unknown) ? (units (unkno wn) date) unknown) (unknown) (no (unknown) (unknown) Age/Sex: 36 / F (units (unknown) date) unknown) (unknown) (no (unknown) (unknown) Allergies (units (unkn own) date) unknown) (unknown) (no (unknown) (unknown) Allergy/AdvReac (units (unknown) date) Type Severity unknown) Reaction Status Date / Time (unknown) (no (unknown) (unknown) Anxiety (-2017) (units (unknown) date) unknown) (unknown) (no (unknown) (unknown) Blood Pressure (units (unknown) date) 132/81 06/02/22 unknown) 18:41 (unknown) (no (unknown) (unknown) Blood Pressure (units (unknown) date) 132/81 unknown) (unknown) (no (unknown) (unknown) Bones:? Subacute (units (unknown) date) comminuted unknown) fracture of the 5th digit proximal phalanx.? The (unknown) (no (unknown) (unknown) Brother (units (unkno wn) date) Hypertension unknown) (unknown) (no (unknown) (unknown) Chicken pox (units (un known) date) () unknown) (unknown) (no (unknown) (unknown) Chief Complaint: (units (unknown) date) Extremity Injury, unknown) Lower (unknown) (no (unknown) (unknown) Course (units (unkno wn) date) unknown) (unknown) (no (unknown) (unknown) : 1985 (units (unknown) date) Acct:[id number] unknown) (unknown) (no (unknown) (unknown) Date of Service: (units (unknown) date) 06/02/22 unknown) (unknown) (no (unknown) (unknown) Departure (units (unkn own) date) unknown) (unknown) (no (unknown) (unknown) Depression (units (unk nown) date) () unknown) (unknown) (no (unknown) (unknown) Dictated by: (units (u nknown) date) gene Smith M.D. on 06/02/2022 at 20:33 ? ? (unknown) (no (unknown) (unknown) Discharge Plan (units (unknown) date) unknown) (unknown) (no (unknown) (unknown) ED Orders (units (unkn own) date) unknown) (unknown) (no (unknown) (unknown) ER Physician: (units ( unknown) date) Bobbi Ogden unknown) (unknown) (no (unknown) (unknown) Emergency Report (units (unknown) date) unknown) (unknown) (no (unknown) (unknown) Exam (units (unkno wn) date) unknown) (unknown) (no (unknown) (unknown) Extremity: Left (units (unknown) date) foot and ankle are unknown) swollen in comparison to the right more over (unknown) (no (unknown) (unknown) FINDINGS:? (units (unk nown) date) unknown) (unknown) (no (unknown) (unknown) Family History (units (unknown) date) (Reviewed 06/02/22 unknown) @ 21:41 by Bobbi Ogden MD) (unknown) (no (unknown) (unknown) General (units (unkno wn) date) unknown) (unknown) (no (unknown) (unknown) General: Alert (units (unknown) date) appropriate in no unknown) acute distress (unknown) (no (unknown) (unknown) HPI - Extremity (units (unknown) date) Injury (Lower) unknown) (unknown) (no (unknown) (unknown) HPI Narrative: (units (unknown) date) unknown) (unknown) (no (unknown) (unknown) Headache (-2000) (units (unknown) date) unknown) (unknown) (no (unknown) (unknown) History of (units (unk nown) date) Present Illness unknown) (unknown) (no (unknown) (unknown) 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 (units (u nknown) date) unknown) (unknown) (no (unknown) (unknown) Imaging Data (units (u nknown) date) unknown) (unknown) (no (unknown) (unknown) Initial Vital (units ( unknown) date) Signs unknown) (unknown) (no (unknown) (unknown) Initial Vital (units ( unknown) date) Signs: unknown) (unknown) (no (unknown) (unknown) [facility] (units (unknown) date) [address] unknown) [place] [address] (unknown) (no (unknown) (unknown) MDM - Extremity (units (unknown) date) Injury (Lower) unknown) (unknown) (no (unknown) (unknown) Medical History (units (unknown) date) (Reviewed 06/02/22 unknown) @ 21:41 by Bobbi Ogden MD) (unknown) (no (unknown) (unknown) Medication (units (unk nown) date) Instructions unknown) Recorded Confirmed (unknown) (no (unknown) (unknown) Medication (units (unk nown) date) Instructions unknown) Recorded (unknown) (no (unknown) (unknown) Migraines (-1999) (units (unknown) date) unknown) (unknown) (no (unknown) (unknown) Miscellaneous,Doc (units (unknown) date) MD uriel [Primary unknown) Care Provider] (unknown) (no (unknown) (unknown) Mode of arrival: (units (unknown) date) Ambulatory unknown) (unknown) (no (unknown) (unknown) Narrative: (units (unk nown) date) unknown) (unknown) (no (unknown) (unknown) Neurologic: (units (un known) date) Grossly intact no unknown) obvious asymmetries or abnormalities (unknown) (no (unknown) (unknown) No Action (units (unkn own) date) unknown) (unknown) (no (unknown) (unknown) No Known Drug (units ( unknown) date) Allergies Allergy unknown) Verified 10/21/19 10:37 (unknown) (no (unknown) (unknown) Ordered: (units (unkno wn) date) unknown) (unknown) (no (unknown) (unknown) Orders (units (unkno wn) date) unknown) (unknown) (no (unknown) (unknown) Oxygen Delivery (units (unknown) date) Method 06/02/22 unknown) 18:41 (unknown) (no (unknown) (unknown) Oxygen Delivery (units (unknown) date) Method Room Air unknown) (unknown) (no (unknown) (unknown) Patient History (units (unknown) date) unknown) (unknown) (no (unknown) (unknown) Patient: (units (unkno wn) date) Charlie Stafford unknown) MR#: [id number] (unknown) (no (unknown) (unknown) Prescriptions: (units (unknown) date) unknown) (unknown) (no (unknown) (unknown) Previous Rx's (units ( unknown) date) unknown) (unknown) (no (unknown) (unknown) Previous (units (unknown) date) section unknown) (-08/12/17) (unknown) (no (unknown) (unknown) Psych: (units (unkno wn) date) appropriate unknown) insight and affect, cooperative (unknown) (no (unknown) (unknown) Pulse Oximetry (units (unknown) date) 100 06/02/22 18:41 unknown) (unknown) (no (unknown) (unknown) Pulse Oximetry (units (unknown) date) 100 unknown) (unknown) (no (unknown) (unknown) Pulse Rate 92 H (units (unknown) date) 06/02/22 18:41 unknown) (unknown) (no (unknown) (unknown) Pulse Rate 92 H (units (unknown) date) unknown) (unknown) (no (unknown) (unknown) Radiologist's (units ( unknown) date) Impression: unknown) (unknown) (no (unknown) (unknown) Referrals: (units (unk nown) date) unknown) (unknown) (no (unknown) (unknown) Related Data (units (u nknown) date) unknown) (unknown) (no (unknown) (unknown) Remainder of (units (u nknown) date) complete review of unknown) systems is otherwise unremarkable except for (unknown) (no (unknown) (unknown) Respiratory Rate (units (unknown) date) 16 06/02/22 18:41 unknown) (unknown) (no (unknown) (unknown) Respiratory Rate (units (unknown) date) 16 unknown) (unknown) (no (unknown) (unknown) Respiratory: Able (units (unknown) date) to speak in full unknown) sentences, no obvious respiratory distress (unknown) (no (unknown) (unknown) Review of Systems (units (unknown) date) unknown) (unknown) (no (unknown) (unknown) Signed By: (units (unk nown) date) unknown) (unknown) (no (unknown) (unknown) Skin: No obvious (units (unknown) date) rashes, warm and unknown) dry (unknown) (no (unknown) (unknown) Smoking Status: (units (unknown) date) Current every day unknown) smoker (unknown) (no (unknown) (unknown) Social History (units (unknown) date) (Reviewed 06/02/22 unknown) @ 21:41 by Bobbi Ogden MD) (unknown) (no (unknown) (unknown) Soft tissues:? No (units (unknown) date) suspicious soft unknown) tissue densities.? (unknown) (no (unknown) (unknown) Source: patient (units (unknown) date) unknown) (unknown) (no (unknown) (unknown) Stated Complaint: (units (unknown) date) Broke Toe/Swelling unknown) in Extremeties (unknown) (no (unknown) (unknown) Subacute fracture (units (unknown) date) of the 5th digit unknown) proximal phalanx. (unknown) (no (unknown) (unknown) Substance Use (units ( unknown) date) Type: marijuana unknown) and methamphetamine (unknown) (no (unknown) (unknown) Surgical History (units (unknown) date) (Reviewed 06/02/22 unknown) @ 21:41 by Bobbi Ogden MD) (unknown) (no (unknown) (unknown) Temperature 97.8 (units (unknown) date) F 06/02/22 18:41 unknown) (unknown) (no (unknown) (unknown) Temperature 97.8 (units (unknown) date) F unknown) (unknown) (no (unknown) (unknown) There is no (units (un known) date) warmth or redness unknown) to suggest infection. She does not describe (unknown) (no (unknown) (unknown) Time Seen by (units (u nknown) date) Provider: 06/02/22 unknown) 20:19 (unknown) (no (unknown) (unknown) Uterine myoma (units ( unknown) date) (-2016) unknown) (unknown) (no (unknown) (unknown) Vital Signs - 8 (units (unknown) date) hr unknown) (unknown) (no (unknown) (unknown) Vital Signs (units (un known) date) unknown) (unknown) (no (unknown) (unknown) Vital signs: (units (u nknown) date) unknown) (unknown) (no (unknown) (unknown) XR toe LT min 2V (units (unknown) date) Stat unknown) (unknown) (no (unknown) (unknown) XR toe: (units (unkno wn) date) unknown) (unknown) (no (unknown) (unknown) alcohol intake (units (unknown) date) frequency: 0-2 unknown) drinks per day (unknown) (no (unknown) (unknown) diarrhea, (units (unkn own) date) abdominal pain, unknown) dysuria. (unknown) (no (unknown) (unknown) forming and is (units (unknown) date) not particularly unknown) tender anymore. For the last week she has had (unknown) (no (unknown) (unknown) fracture is (units (un known) date) unknown) (unknown) (no (unknown) (unknown) ibuprofen 600 mg (units (unknown) date) Tablet unknown) (unknown) (no (unknown) (unknown) ibuprofen 600 mg (units (unknown) date) tablet 600 mg PO unknown) Q6HR PRN Fever/Mild Pain 07/29/19 (unknown) (no (unknown) (unknown) increased (units (unkn own) date) swelling over her unknown) foot and ankle without specific point tenderness. (unknown) (no (unknown) (unknown) mildly (units (unkno wn) date) displaced.? There unknown) is adjacent bony callus.? No definite involvement of (unknown) (no (unknown) (unknown) months ago she (units (unknown) date) kicked a stroller unknown) with her foot and does have a nicely healing (unknown) (no (unknown) (unknown) prenat.vits,diego,m (units (unknown) date) [id number] 1 unknown) tab PO DAILY 04/28/19 10/21/19 (unknown) (no (unknown) (unknown) prenat.vits,diego,m (units (unknown) date) [id number] unknown) tablet (unknown) (no (unknown) (unknown) proximal or (units (un known) date) distal articular unknown) surface identified.? Mild bunion deformity. (unknown) (no (unknown) (unknown) sertraline 50 mg (units (unknown) date) tablet (Zoloft) unknown) 100 mg PO DAILY #60 tabs 04/04/20 (unknown) (no (unknown) (unknown) sertraline (units (unk nown) date) [Zoloft] 50 mg unknown) tablet (unknown) (no (unknown) (unknown) size without (units (u nknown) date) tenderness. She unknown) has not had fevers, cough, chills, vomiting, (unknown) (no (unknown) (unknown) specific trauma. (units (unknown) date) There is no unknown) swelling more proximal and calves are equal in (unknown) (no (unknown) (unknown) tenderness into (units (unknown) date) the calf. No unknown) lymphangitis spread and no inguinal adenopathy (unknown) (no (unknown) (unknown) tenderness. (units (un known) date) Proximal to the unknown) ankle there is no significant swelling and no (unknown) (no (unknown) (unknown) that included in (units (unknown) date) the HPI. unknown) (unknown) (no (unknown) (unknown) the dorsum. There (units (unknown) date) is no redness, unknown) warmth, abscess collection, specific point (unknown) (no (unknown) (unknown) the (units (unkno wn) date) unknown) (unknown) (no (unknown) (unknown) tobacco type: (units ( unknown) date) cigarettes unknown) Result panel 5 (unknown) (no (unknown) (unknown) (no value) (units (unk nown) date) unknown) (unknown) (no (unknown) (unknown) (1-3) #30 tabs (units (unknown) date) unknown) (unknown) (no (unknown) (unknown) [id number] (units (unkno wn) date) unknown) (unknown) (no (unknown) (unknown) 1 tab PO DAILY (units (unknown) date) unknown) (unknown) (no (unknown) (unknown) 06/02/22 18:49 (units (unknown) date) unknown) (unknown) (no (unknown) (unknown) 06/02/22 21:42 (units (unknown) date) unknown) (unknown) (no (unknown) (unknown) 06/02/22 (units (unkno wn) date) unknown) (unknown) (no (unknown) (unknown) 100 mg PO DAILY (units (unknown) date) Qty: 60 6RF unknown) (unknown) (no (unknown) (unknown) 18:41 (units (unkno wn) date) unknown) (unknown) (no (unknown) (unknown) 36-year-old woman (units (unknown) date) comes in with left unknown) foot and ankle swelling. She notes back 2 (unknown) (no (unknown) (unknown) 36-year-old woman (units (unknown) date) with left foot and unknown) ankle pain and increased swelling. She has (unknown) (no (unknown) (unknown) 5th proximal (units (u nknown) date) phalanx fracture unknown) that is mildly displaced but has nice callus (unknown) (no (unknown) (unknown) 600 mg PO Q6HR (units (unknown) date) PRN (Reason: unknown) Fever/Mild Pain (1-3)) Qty: 30 0RF (unknown) (no (unknown) (unknown) ? (units (unkno wn) date) unknown) (unknown) (no (unknown) (unknown) Activity (units (unkno wn) date) Restrictions/Addit unknown) ional Instructions: (unknown) (no (unknown) (unknown) Acute foot pain (units (unknown) date) unknown) (unknown) (no (unknown) (unknown) Age/Sex: 36 / F (units (unknown) date) unknown) (unknown) (no (unknown) (unknown) Allergies (units (unkn own) date) unknown) (unknown) (no (unknown) (unknown) Allergy/AdvReac (units (unknown) date) Type Severity unknown) Reaction Status Date / Time (unknown) (no (unknown) (unknown) Anxiety (-2018) (units (unknown) date) unknown) (unknown) (no (unknown) (unknown) Blood Pressure (units (unknown) date) 132/81 06/02/22 unknown) 18:41 (unknown) (no (unknown) (unknown) Blood Pressure (units (unknown) date) 132/81 unknown) (unknown) (no (unknown) (unknown) Bones:? No (units (unk nown) date) fractures or unknown) dislocations.? Ankle mortise is normally aligned.? No (unknown) (no (unknown) (unknown) Bones:? Subacute (units (unknown) date) comminuted unknown) fracture of the 5th digit proximal phalanx.? The (unknown) (no (unknown) (unknown) Brother (units (unkno wn) date) Hypertension unknown) (unknown) (no (unknown) (unknown) Chicken pox (units (un known) date) () unknown) (unknown) (no (unknown) (unknown) Chief Complaint: (units (unknown) date) Extremity Injury, unknown) Lower (unknown) (no (unknown) (unknown) Clinical (units (unkno wn) date) Impression: unknown) (unknown) (no (unknown) (unknown) Course (units (unkno wn) date) unknown) (unknown) (no (unknown) (unknown) : 1985 (units (unknown) date) Acct:[id number] unknown) (unknown) (no (unknown) (unknown) Date of Service: (units (unknown) date) 06/02/22 unknown) (unknown) (no (unknown) (unknown) Departure (units (unkn own) date) unknown) (unknown) (no (unknown) (unknown) Depression (units (unk nown) date) () unknown) (unknown) (no (unknown) (unknown) Dictated by: (units (u nknown) date) Alexx Healy unknownJoe Tony on 06/02/2022 at 20:33 ? ? (unknown) (no (unknown) (unknown) Dictated by: (units (u nknown) date) gene Mcgovern M.D. on 06/02/2022 at 22:01 ? ? (unknown) (no (unknown) (unknown) Discharge Plan (units (unknown) date) unknown) (unknown) (no (unknown) (unknown) ED Orders (units (unkn own) date) unknown) (unknown) (no (unknown) (unknown) ER Physician: (units ( unknown) date) Bobbi Ogden unknown) (unknown) (no (unknown) (unknown) Emergency Report (units (unknown) date) unknown) (unknown) (no (unknown) (unknown) Exam (units (unkno wn) date) unknown) (unknown) (no (unknown) (unknown) Extremity: Left (units (unknown) date) foot and ankle are unknown) swollen in comparison to the right more over (unknown) (no (unknown) (unknown) FINDINGS:? (units (unk nown) date) unknown) (unknown) (no (unknown) (unknown) Family History (units (unknown) date) (Reviewed 06/02/22 unknown) @ 21:41 by Bobbi Ogden MD) (unknown) (no (unknown) (unknown) General (units (unkno wn) date) unknown) (unknown) (no (unknown) (unknown) General: Alert (units (unknown) date) appropriate in no unknown) acute distress (unknown) (no (unknown) (unknown) HPI - Extremity (units (unknown) date) Injury (Lower) unknown) (unknown) (no (unknown) (unknown) HPI Narrative: (units (unknown) date) unknown) (unknown) (no (unknown) (unknown) Headache (-2000) (units (unknown) date) unknown) (unknown) (no (unknown) (unknown) History of (units (unk nown) date) Present Illness unknown) (unknown) (no (unknown) (unknown) 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 No (units (unknown) date) osseous trauma unknown) found, normal alignment. (unknown) (no (unknown) (unknown) IMPRESSION:? (units (u nknown) date) unknown) (unknown) (no (unknown) (unknown) If you find that (units (unknown) date) you are getting unknown) worse or develop any new symptoms, please feel (unknown) (no (unknown) (unknown) Imaging Data (units (u nknown) date) unknown) (unknown) (no (unknown) (unknown) Initial Vital (units ( unknown) date) Signs unknown) (unknown) (no (unknown) (unknown) Initial Vital (units ( unknown) date) Signs: unknown) (unknown) (no (unknown) (unknown) Instructions: DI (units (unknown) date) for Foot Pain unknown) (unknown) (no (unknown) (unknown) [facility] (units (unknown) date) [address] unknown) [place] [address] (unknown) (no (unknown) (unknown) MDM - Extremity (units (unknown) date) Injury (Lower) unknown) (unknown) (no (unknown) (unknown) MDM Narrative (units ( unknown) date) unknown) (unknown) (no (unknown) (unknown) Medical History (units (unknown) date) (Updated 06/02/22 unknown) @ 22:35 by Bobbi Ogden MD) (unknown) (no (unknown) (unknown) Medical decision (units (unknown) date) making narrative: unknown) (unknown) (no (unknown) (unknown) Medication (units (unk nown) date) Instructions unknown) Recorded Confirmed (unknown) (no (unknown) (unknown) Medication (units (unk nown) date) Instructions unknown) Recorded (unknown) (no (unknown) (unknown) Migraines (-1999) (units (unknown) date) unknown) (unknown) (no (unknown) (unknown) Miscellaneous,Doc (units (unknown) date) MD uriel [Primary unknown) Care Provider] (unknown) (no (unknown) (unknown) Mode of arrival: (units (unknown) date) Ambulatory unknown) (unknown) (no (unknown) (unknown) Narrative: (units (unk nown) date) unknown) (unknown) (no (unknown) (unknown) Neurologic: (units (un known) date) Grossly intact no unknown) obvious asymmetries or abnormalities (unknown) (no (unknown) (unknown) No Action (units (unkn own) date) unknown) (unknown) (no (unknown) (unknown) No Known Drug (units ( unknown) date) Allergies Allergy unknown) Verified 10/21/19 10:37 (unknown) (no (unknown) (unknown) Ordered: (units (unkno wn) date) unknown) (unknown) (no (unknown) (unknown) Orders (units (unkno wn) date) unknown) (unknown) (no (unknown) (unknown) Oxygen Delivery (units (unknown) date) Method 06/02/22 unknown) 18:41 (unknown) (no (unknown) (unknown) Oxygen Delivery (units (unknown) date) Method Room Air unknown) (unknown) (no (unknown) (unknown) Patient (units (unkno wn) date) Disposition: Home unknown) (unknown) (no (unknown) (unknown) Patient History (units (unknown) date) unknown) (unknown) (no (unknown) (unknown) Patient: (units (unkno wn) date) Charlie Stafford unknown) MR#: [id number] (unknown) (no (unknown) (unknown) Prescriptions: (units (unknown) date) unknown) (unknown) (no (unknown) (unknown) Previous Rx's (units ( unknown) date) unknown) (unknown) (no (unknown) (unknown) Previous (units (unknown) date) section unknown) (-08/12/17) (unknown) (no (unknown) (unknown) Psych: (units (unkno wn) date) appropriate unknown) insight and affect, cooperative (unknown) (no (unknown) (unknown) Pulse Oximetry (units (unknown) date) 100 06/02/22 18:41 unknown) (unknown) (no (unknown) (unknown) Pulse Oximetry (units (unknown) date) 100 unknown) (unknown) (no (unknown) (unknown) Pulse Rate 92 H (units (unknown) date) 06/02/22 18:41 unknown) (unknown) (no (unknown) (unknown) Pulse Rate 92 H (units (unknown) date) unknown) (unknown) (no (unknown) (unknown) Radiologist's (units ( unknown) date) Impression: unknown) (unknown) (no (unknown) (unknown) Referrals: (units (unk nown) date) unknown) (unknown) (no (unknown) (unknown) Related Data (units (u nknown) date) unknown) (unknown) (no (unknown) (unknown) Remainder of (units (u nknown) date) complete review of unknown) systems is otherwise unremarkable except for (unknown) (no (unknown) (unknown) Respiratory Rate (units (unknown) date) 16 06/02/22 18:41 unknown) (unknown) (no (unknown) (unknown) Respiratory Rate (units (unknown) date) 16 unknown) (unknown) (no (unknown) (unknown) Respiratory: Able (units (unknown) date) to speak in full unknown) sentences, no obvious respiratory distress (unknown) (no (unknown) (unknown) Review of Systems (units (unknown) date) unknown) (unknown) (no (unknown) (unknown) Signed By: (units (unk nown) date) unknown) (unknown) (no (unknown) (unknown) Skin: No obvious (units (unknown) date) rashes, warm and unknown) dry (unknown) (no (unknown) (unknown) Smoking Status: (units (unknown) date) Current every day unknown) smoker (unknown) (no (unknown) (unknown) Social History (units (unknown) date) (Reviewed 06/02/22 unknown) @ 21:41 by Bobbi Ogden MD) (unknown) (no (unknown) (unknown) Soft tissues:? No (units (unknown) date) suspicious soft unknown) tissue densities.? (unknown) (no (unknown) (unknown) Soft tissues:? No (units (unknown) date) tibiotalar joint unknown) effusion.? Achilles tendon appears normal.? (unknown) (no (unknown) (unknown) Source: patient (units (unknown) date) unknown) (unknown) (no (unknown) (unknown) Stated Complaint: (units (unknown) date) Broke Toe/Swelling unknown) in Extremeties (unknown) (no (unknown) (unknown) Subacute fracture (units (unknown) date) of the 5th digit unknown) proximal phalanx. (unknown) (no (unknown) (unknown) Substance Use (units ( unknown) date) Type: marijuana unknown) and methamphetamine (unknown) (no (unknown) (unknown) Surgical History (units (unknown) date) (Reviewed 06/02/22 unknown) @ 21:41 by Bobbi Ogden MD) (unknown) (no (unknown) (unknown) Temperature 97.8 (units (unknown) date) F 06/02/22 18:41 unknown) (unknown) (no (unknown) (unknown) Temperature 97.8 (units (unknown) date) F unknown) (unknown) (no (unknown) (unknown) Thank you for (units ( unknown) date) coming in today unknown) (unknown) (no (unknown) (unknown) The toe that you (units (unknown) date) hit about 2 months unknown) ago was in fact broken and is healing (unknown) (no (unknown) (unknown) There is no (units (un known) date) warmth or redness unknown) to suggest infection. She does not describe (unknown) (no (unknown) (unknown) Time Seen by (units (u nknown) date) Provider: 06/02/22 unknown) 20:19 (unknown) (no (unknown) (unknown) Uterine myoma (units ( unknown) date) (-2016) unknown) (unknown) (no (unknown) (unknown) Vital Signs - 8 (units (unknown) date) hr unknown) (unknown) (no (unknown) (unknown) Vital Signs (units (un known) date) unknown) (unknown) (no (unknown) (unknown) Vital signs: (units (u nknown) date) unknown) (unknown) (no (unknown) (unknown) XR ankle LT min (units (unknown) date) 3V Stat unknown) (unknown) (no (unknown) (unknown) XR ankle: (units (unkn own) date) unknown) (unknown) (no (unknown) (unknown) XR toe LT min 2V (units (unknown) date) Stat unknown) (unknown) (no (unknown) (unknown) XR toe: (units (unkno wn) date) unknown) (unknown) (no (unknown) (unknown) You clearly have (units (unknown) date) injured her foot unknown) and it is appropriately swollen and tender. I (unknown) (no (unknown) (unknown) a healing 5th (units ( unknown) date) proximal phalanx unknown) fracture and no evidence of acute bony injury (unknown) (no (unknown) (unknown) alcohol intake (units (unknown) date) frequency: 0-2 unknown) drinks per day (unknown) (no (unknown) (unknown) bony lesions.? (units (unknown) date) unknown) (unknown) (no (unknown) (unknown) clot in your leg (units (unknown) date) or abscess. unknown) (unknown) (no (unknown) (unknown) controlling pain. (units (unknown) date) unknown) (unknown) (no (unknown) (unknown) diarrhea, (units (unkn own) date) abdominal pain, unknown) dysuria. (unknown) (no (unknown) (unknown) foot and staying (units (unknown) date) off it as much as unknown) you are able to can be very helpful in (unknown) (no (unknown) (unknown) for home (units (unkno wn) date) discharge unknown) (unknown) (no (unknown) (unknown) forming and is (units (unknown) date) not particularly unknown) tender anymore. For the last week she has had (unknown) (no (unknown) (unknown) fracture is (units (un known) date) unknown) (unknown) (no (unknown) (unknown) free to return to (units (unknown) date) the emergency unknown) department for further evaluation. (unknown) (no (unknown) (unknown) have given you an (units (unknown) date) Cholo wrap to use. unknown) Using 400 mg of ibuprofen (2 (unknown) (no (unknown) (unknown) ibuprofen 600 mg (units (unknown) date) Tablet unknown) (unknown) (no (unknown) (unknown) ibuprofen 600 mg (units (unknown) date) tablet 600 mg PO unknown) Q6HR PRN Fever/Mild Pain 07/29/19 (unknown) (no (unknown) (unknown) increased (units (unkn own) date) swelling over her unknown) foot and ankle without specific point tenderness. (unknown) (no (unknown) (unknown) mildly (units (unkno wn) date) displaced.? There unknown) is adjacent bony callus.? No definite involvement of (unknown) (no (unknown) (unknown) months ago she (units (unknown) date) kicked a stroller unknown) with her foot and does have a nicely healing (unknown) (no (unknown) (unknown) nicely. There is (units (unknown) date) no sign of unknown) additional fractures or injuries 3 your foot or (unknown) (no (unknown) (unknown) [id number] (units (unknown) date) pills) and 1 unknown) Tylenol every 6 hours as well as elevating her (unknown) (no (unknown) (unknown) prenat.vits,diego,m (units (unknown) date) gp-pyzh-doesv 1 unknown) tab PO DAILY 04/28/19 10/21/19 (unknown) (no (unknown) (unknown) prenat.vits,diego,m (units (unknown) date) [id number] unknown) tablet (unknown) (no (unknown) (unknown) proximal or (units (un known) date) distal articular unknown) surface identified.? Mild bunion deformity. (unknown) (no (unknown) (unknown) sertraline 50 mg (units (unknown) date) tablet (Zoloft) unknown) 100 mg PO DAILY #60 tabs 04/04/20 (unknown) (no (unknown) (unknown) sertraline (units (unk nown) date) [Zoloft] 50 mg unknown) tablet (unknown) (no (unknown) (unknown) size without (units (u nknown) date) tenderness. She unknown) has not had fevers, cough, chills, vomiting, (unknown) (no (unknown) (unknown) specific trauma. (units (unknown) date) There is no unknown) swelling more proximal and calves are equal in (unknown) (no (unknown) (unknown) suspect DVT. (units (u nknown) date) Discussed unknown) ibuprofen and Tylenol for pain control and she is safe (unknown) (no (unknown) (unknown) suspicious (units (unk nown) date) unknown) (unknown) (no (unknown) (unknown) tenderness into (units (unknown) date) the calf. No unknown) lymphangitis spread and no inguinal adenopathy (unknown) (no (unknown) (unknown) tenderness. (units (un known) date) Proximal to the unknown) ankle there is no significant swelling and no (unknown) (no (unknown) (unknown) that included in (units (unknown) date) the HPI. unknown) (unknown) (no (unknown) (unknown) the dorsum. There (units (unknown) date) is no redness, unknown) warmth, abscess collection, specific point (unknown) (no (unknown) (unknown) the (units (unkno wn) date) unknown) (unknown) (no (unknown) (unknown) this point I see (units (unknown) date) no evidence of unknown) superimposed infection, abscess and do not (unknown) (no (unknown) (unknown) throughout the (units (unknown) date) foot and ankle. unknown) Cholo wrap is placed reassurance is given. At (unknown) (no (unknown) (unknown) tobacco type: (units ( unknown) date) cigarettes unknown) (unknown) (no (unknown) (unknown) your ankle. With (units (unknown) date) her clinical exam, unknown) I am not concerned with infection, blood Result panel 6 (unknown) (no (unknown) (unknown) (no value) (units (unk nown) date) unknown) (unknown) (no (unknown) (unknown) <Electronically (units (unknown) date) signed by Bobbi Burgos unknown) MD Melvi> (unknown) (no (unknown) (unknown) (1-3) #30 tabs (units (unknown) date) unknown) (unknown) (no (unknown) (unknown) [id number] (units (unkno wn) date) unknown) (unknown) (no (unknown) (unknown) 1 tab PO DAILY (units (unknown) date) unknown) (unknown) (no (unknown) (unknown) 06/02/22 18:49 (units (unknown) date) unknown) (unknown) (no (unknown) (unknown) 06/02/22 21:42 (units (unknown) date) unknown) (unknown) (no (unknown) (unknown) 06/02/22 2240 (units ( unknown) date) unknown) (unknown) (no (unknown) (unknown) 06/02/22 (units (unkno wn) date) unknown) (unknown) (no (unknown) (unknown) 100 mg PO DAILY (units (unknown) date) Qty: 60 6RF unknown) (unknown) (no (unknown) (unknown) 18:41 (units (unkno wn) date) unknown) (unknown) (no (unknown) (unknown) 36-year-old woman (units (unknown) date) comes in with left unknown) foot and ankle swelling. She notes back 2 (unknown) (no (unknown) (unknown) 36-year-old woman (units (unknown) date) with left foot and unknown) ankle pain and increased swelling. She has (unknown) (no (unknown) (unknown) 5th proximal (units (u nknown) date) phalanx fracture unknown) that is mildly displaced but has nice callus (unknown) (no (unknown) (unknown) 600 mg PO Q6HR (units (unknown) date) PRN (Reason: unknown) Fever/Mild Pain (1-3)) Qty: 30 0RF (unknown) (no (unknown) (unknown) ? (units (unkno wn) date) unknown) (unknown) (no (unknown) (unknown) Activity (units (unkno wn) date) Restrictions/Addit unknown) ional Instructions: (unknown) (no (unknown) (unknown) Acute foot pain (units (unknown) date) unknown) (unknown) (no (unknown) (unknown) Age/Sex: 36 / F (units (unknown) date) unknown) (unknown) (no (unknown) (unknown) Allergies (units (unkn own) date) unknown) (unknown) (no (unknown) (unknown) Allergy/AdvReac (units (unknown) date) Type Severity unknown) Reaction Status Date / Time (unknown) (no (unknown) (unknown) Anxiety (-2018) (units (unknown) date) unknown) (unknown) (no (unknown) (unknown) Blood Pressure (units (unknown) date) 132/81 06/02/22 unknown) 18:41 (unknown) (no (unknown) (unknown) Blood Pressure (units (unknown) date) 132/81 unknown) (unknown) (no (unknown) (unknown) Bones:? No (units (unk nown) date) fractures or unknown) dislocations.? Ankle mortise is normally aligned.? No (unknown) (no (unknown) (unknown) Bones:? Subacute (units (unknown) date) comminuted unknown) fracture of the 5th digit proximal phalanx.? The (unknown) (no (unknown) (unknown) Brother (units (unkno wn) date) Hypertension unknown) (unknown) (no (unknown) (unknown) Chicken pox (units (un known) date) () unknown) (unknown) (no (unknown) (unknown) Chief Complaint: (units (unknown) date) Extremity Injury, unknown) Lower (unknown) (no (unknown) (unknown) Clinical (units (unkno wn) date) Impression: unknown) (unknown) (no (unknown) (unknown) Course (units (unkno wn) date) unknown) (unknown) (no (unknown) (unknown) : 1985 (units (unknown) date) Acct:[id number] unknown) (unknown) (no (unknown) (unknown) Date of Service: (units (unknown) date) 06/02/22 unknown) (unknown) (no (unknown) (unknown) Departure (units (unkn own) date) unknown) (unknown) (no (unknown) (unknown) Depression (units (unk nown) date) () unknown) (unknown) (no (unknown) (unknown) Dictated by: (units (u nknown) date) Alexx Healy, unknown) Chavo on 06/02/2022 at 20:33 ? ? (unknown) (no (unknown) (unknown) Dictated by: (units (u nknown) date) gene Mcgovern M.D. on 06/02/2022 at 22:01 ? ? (unknown) (no (unknown) (unknown) Discharge Plan (units (unknown) date) unknown) (unknown) (no (unknown) (unknown) ED Orders (units (unkn own) date) unknown) (unknown) (no (unknown) (unknown) ER Physician: (units ( unknown) date) Bobbi Ogden unknown) (unknown) (no (unknown) (unknown) Emergency Report (units (unknown) date) unknown) (unknown) (no (unknown) (unknown) Exam (units (unkno wn) date) unknown) (unknown) (no (unknown) (unknown) Extremity: Left (units (unknown) date) foot and ankle are unknown) swollen in comparison to the right more over (unknown) (no (unknown) (unknown) FINDINGS:? (units (unk nown) date) unknown) (unknown) (no (unknown) (unknown) Family History (units (unknown) date) (Reviewed 06/02/22 unknown) @ 21:41 by Bobbi Ogden MD) (unknown) (no (unknown) (unknown) General (units (unkno wn) date) unknown) (unknown) (no (unknown) (unknown) General: Alert (units (unknown) date) appropriate in no unknown) acute distress (unknown) (no (unknown) (unknown) HPI - Extremity (units (unknown) date) Injury (Lower) unknown) (unknown) (no (unknown) (unknown) HPI Narrative: (units (unknown) date) unknown) (unknown) (no (unknown) (unknown) Headache (-1999) (units (unknown) date) unknown) (unknown) (no (unknown) (unknown) History of (units (unk nown) date) Present Illness unknown) (unknown) (no (unknown) (unknown) 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 No (units (unknown) date) osseous trauma unknown) found, normal alignment. (unknown) (no (unknown) (unknown) IMPRESSION:? (units (u nknown) date) unknown) (unknown) (no (unknown) (unknown) If you find that (units (unknown) date) you are getting unknown) worse or develop any new symptoms, please feel (unknown) (no (unknown) (unknown) Imaging Data (units (u nknown) date) unknown) (unknown) (no (unknown) (unknown) Initial Vital (units ( unknown) date) Signs unknown) (unknown) (no (unknown) (unknown) Initial Vital (units ( unknown) date) Signs: unknown) (unknown) (no (unknown) (unknown) Instructions: DI (units (unknown) date) for Foot Pain unknown) (unknown) (no (unknown) (unknown) [facility] (units (unknown) date) [address] [place] [address] unknown) [place] [address] (unknown) (no (unknown) (unknown) Laterality: left (units (unknown) date) Qualified Code(s): unknown) M79.672 - Pain in left foot (unknown) (no (unknown) (unknown) Left foot and (units ( unknown) date) ankle: unknown) (unknown) (no (unknown) (unknown) Lower Extremity (units (unknown) date) Immobilizer: Cholo unknown) wrap (unknown) (no (unknown) (unknown) Lower Extremity (units (unknown) date) Injury Location: unknown) ankle and foot (unknown) (no (unknown) (unknown) MDM - Extremity (units (unknown) date) Injury (Lower) unknown) (unknown) (no (unknown) (unknown) MDM Narrative (units ( unknown) date) unknown) (unknown) (no (unknown) (unknown) Medical History (units (unknown) date) (Updated 06/02/22 unknown) @ 22:35 by Bobbi Ogden MD) (unknown) (no (unknown) (unknown) Medical decision (units (unknown) date) making narrative: unknown) (unknown) (no (unknown) (unknown) Medication (units (unk nown) date) Instructions unknown) Recorded Confirmed (unknown) (no (unknown) (unknown) Medication (units (unk nown) date) Instructions unknown) Recorded (unknown) (no (unknown) (unknown) Migraines () (units (unknown) date) unknown) (unknown) (no (unknown) (unknown) Miscellaneous,Doc (units (unknown) date) MD uriel [Primary unknown) Care Provider] (unknown) (no (unknown) (unknown) Mode of arrival: (units (unknown) date) Ambulatory unknown) (unknown) (no (unknown) (unknown) Narrative: (units (unk nown) date) unknown) (unknown) (no (unknown) (unknown) Neurologic: (units (un known) date) Grossly intact no unknown) obvious asymmetries or abnormalities (unknown) (no (unknown) (unknown) No Action (units (unkn own) date) unknown) (unknown) (no (unknown) (unknown) No Known Drug (units ( unknown) date) Allergies Allergy unknown) Verified 10/21/19 10:37 (unknown) (no (unknown) (unknown) Ordered: (units (unkno wn) date) unknown) (unknown) (no (unknown) (unknown) Orders (units (unkno wn) date) unknown) (unknown) (no (unknown) (unknown) Orthopedic (units (unk nown) date) Splinting/Casting unknown) (unknown) (no (unknown) (unknown) Oxygen Delivery (units (unknown) date) Method 06/02/22 unknown) 18:41 (unknown) (no (unknown) (unknown) Oxygen Delivery (units (unknown) date) Method Room Air unknown) (unknown) (no (unknown) (unknown) Patient (units (unkno wn) date) Disposition: Home unknown) (unknown) (no (unknown) (unknown) Patient History (units (unknown) date) unknown) (unknown) (no (unknown) (unknown) Patient: (units (unkno wn) date) Charlie Stafford unknown) MR#: [id number] (unknown) (no (unknown) (unknown) Placed by: (units (unk nown) date) Provider unknown) (unknown) (no (unknown) (unknown) Post splinting (units (unknown) date) neuro exam: intact unknown) (unknown) (no (unknown) (unknown) Post splinting (units (unknown) date) vascular exam: unknown) intact (unknown) (no (unknown) (unknown) Prescriptions: (units (unknown) date) unknown) (unknown) (no (unknown) (unknown) Previous Rx's (units ( unknown) date) unknown) (unknown) (no (unknown) (unknown) Previous (units (unknown) date) section unknown) (-08/12/17) (unknown) (no (unknown) (unknown) Procedures (units (unk nown) date) unknown) (unknown) (no (unknown) (unknown) Psych: (units (unkno wn) date) appropriate unknown) insight and affect, cooperative (unknown) (no (unknown) (unknown) Pulse Oximetry (units (unknown) date) 100 06/02/22 18:41 unknown) (unknown) (no (unknown) (unknown) Pulse Oximetry (units (unknown) date) 100 unknown) (unknown) (no (unknown) (unknown) Pulse Rate 92 H (units (unknown) date) 06/02/22 18:41 unknown) (unknown) (no (unknown) (unknown) Pulse Rate 92 H (units (unknown) date) unknown) (unknown) (no (unknown) (unknown) Qualifiers: (units (un known) date) unknown) (unknown) (no (unknown) (unknown) Radiologist's (units ( unknown) date) Impression: unknown) (unknown) (no (unknown) (unknown) Referrals: (units (unk nown) date) unknown) (unknown) (no (unknown) (unknown) Related Data (units (u nknown) date) unknown) (unknown) (no (unknown) (unknown) Remainder of (units (u nknown) date) complete review of unknown) systems is otherwise unremarkable except for (unknown) (no (unknown) (unknown) Respiratory Rate (units (unknown) date) 16 06/02/22 18:41 unknown) (unknown) (no (unknown) (unknown) Respiratory Rate (units (unknown) date) 16 unknown) (unknown) (no (unknown) (unknown) Respiratory: Able (units (unknown) date) to speak in full unknown) sentences, no obvious respiratory distress (unknown) (no (unknown) (unknown) Review of Systems (units (unknown) date) unknown) (unknown) (no (unknown) (unknown) Side: left (units (unk nown) date) unknown) (unknown) (no (unknown) (unknown) Signed By: (units (unk nown) date) unknown) (unknown) (no (unknown) (unknown) Skin: No obvious (units (unknown) date) rashes, warm and unknown) dry (unknown) (no (unknown) (unknown) Smoking Status: (units (unknown) date) Current every day unknown) smoker (unknown) (no (unknown) (unknown) Social History (units (unknown) date) (Reviewed 06/02/22 unknown) @ 21:41 by Bobbi Ogden MD) (unknown) (no (unknown) (unknown) Soft tissues:? No (units (unknown) date) suspicious soft unknown) tissue densities.? (unknown) (no (unknown) (unknown) Soft tissues:? No (units (unknown) date) tibiotalar joint unknown) effusion.? Achilles tendon appears normal.? (unknown) (no (unknown) (unknown) Source: patient (units (unknown) date) unknown) (unknown) (no (unknown) (unknown) Stated Complaint: (units (unknown) date) Broke Toe/Swelling unknown) in Extremeties (unknown) (no (unknown) (unknown) Subacute fracture (units (unknown) date) of the 5th digit unknown) proximal phalanx. (unknown) (no (unknown) (unknown) Substance Use (units ( unknown) date) Type: marijuana unknown) and methamphetamine (unknown) (no (unknown) (unknown) Surgical History (units (unknown) date) (Reviewed 06/02/22 unknown) @ 21:41 by Bobbi Ogden MD) (unknown) (no (unknown) (unknown) Temperature 97.8 (units (unknown) date) F 06/02/22 18:41 unknown) (unknown) (no (unknown) (unknown) Temperature 97.8 (units (unknown) date) F unknown) (unknown) (no (unknown) (unknown) Thank you for (units ( unknown) date) coming in today unknown) (unknown) (no (unknown) (unknown) The toe that you (units (unknown) date) hit about 2 months unknown) ago was in fact broken and is healing (unknown) (no (unknown) (unknown) There is no (units (un known) date) warmth or redness unknown) to suggest infection. She does not describe (unknown) (no (unknown) (unknown) Time Seen by (units (u nknown) date) Provider: 06/02/22 unknown) 20:19 (unknown) (no (unknown) (unknown) Time of (units (unkno wn) date) procedure: 22:39 unknown) (unknown) (no (unknown) (unknown) Uterine myoma (units ( unknown) date) (-2016) unknown) (unknown) (no (unknown) (unknown) Vital Signs - 8 (units (unknown) date) hr unknown) (unknown) (no (unknown) (unknown) Vital Signs (units (un known) date) unknown) (unknown) (no (unknown) (unknown) Vital signs: (units (u nknown) date) unknown) (unknown) (no (unknown) (unknown) XR ankle LT min (units (unknown) date) 3V Stat unknown) (unknown) (no (unknown) (unknown) XR ankle: (units (unkn own) date) unknown) (unknown) (no (unknown) (unknown) XR toe LT min 2V (units (unknown) date) Stat unknown) (unknown) (no (unknown) (unknown) XR toe: (units (unkno wn) date) unknown) (unknown) (no (unknown) (unknown) You clearly have (units (unknown) date) injured her foot unknown) and it is appropriately swollen and tender. I (unknown) (no (unknown) (unknown) a healing 5th (units ( unknown) date) proximal phalanx unknown) fracture and no evidence of acute bony injury (unknown) (no (unknown) (unknown) alcohol intake (units (unknown) date) frequency: 0-2 unknown) drinks per day (unknown) (no (unknown) (unknown) bony lesions.? (units (unknown) date) unknown) (unknown) (no (unknown) (unknown) clot in your leg (units (unknown) date) or abscess. unknown) (unknown) (no (unknown) (unknown) controlling pain. (units (unknown) date) unknown) (unknown) (no (unknown) (unknown) diarrhea, (units (unkn own) date) abdominal pain, unknown) dysuria. (unknown) (no (unknown) (unknown) foot and staying (units (unknown) date) off it as much as unknown) you are able to can be very helpful in (unknown) (no (unknown) (unknown) for home (units (unkno wn) date) discharge unknown) (unknown) (no (unknown) (unknown) forming and is (units (unknown) date) not particularly unknown) tender anymore. For the last week she has had (unknown) (no (unknown) (unknown) fracture is (units (un known) date) unknown) (unknown) (no (unknown) (unknown) free to return to (units (unknown) date) the emergency unknown) department for further evaluation. (unknown) (no (unknown) (unknown) have given you an (units (unknown) date) Cholo wrap to use. unknown) Using 400 mg of ibuprofen (2 (unknown) (no (unknown) (unknown) ibuprofen 600 mg (units (unknown) date) Tablet unknown) (unknown) (no (unknown) (unknown) ibuprofen 600 mg (units (unknown) date) tablet 600 mg PO unknown) Q6HR PRN Fever/Mild Pain 07/29/19 (unknown) (no (unknown) (unknown) increased (units (unkn own) date) swelling over her unknown) foot and ankle without specific point tenderness. (unknown) (no (unknown) (unknown) mildly (units (unkno wn) date) displaced.? There unknown) is adjacent bony callus.? No definite involvement of (unknown) (no (unknown) (unknown) months ago she (units (unknown) date) kicked a stroller unknown) with her foot and does have a nicely healing (unknown) (no (unknown) (unknown) nicely. There is (units (unknown) date) no sign of unknown) additional fractures or injuries 3 your foot or (unknown) (no (unknown) (unknown) wang-orv-kzfrbze (units (unknown) date) pills) and 1 unknown) Tylenol every 6 hours as well as elevating her (unknown) (no (unknown) (unknown) prenat.vits,diego,m (units (unknown) date) pg-fpef-wawgk 1 unknown) tab PO DAILY 04/28/19 10/21/19 (unknown) (no (unknown) (unknown) prenat.vits,diego,m (units (unknown) date) my-dyqr-wmddw unknown) tablet (unknown) (no (unknown) (unknown) proximal or (units (un known) date) distal articular unknown) surface identified.? Mild bunion deformity. (unknown) (no (unknown) (unknown) sertraline 50 mg (units (unknown) date) tablet (Zoloft) unknown) 100 mg PO DAILY #60 tabs 04/04/20 (unknown) (no (unknown) (unknown) sertraline (units (unk nown) date) [Zoloft] 50 mg unknown) tablet (unknown) (no (unknown) (unknown) size without (units (u nknown) date) tenderness. She unknown) has not had fevers, cough, chills, vomiting, (unknown) (no (unknown) (unknown) specific trauma. (units (unknown) date) There is no unknown) swelling more proximal and calves are equal in (unknown) (no (unknown) (unknown) suspect DVT. (units (u nknown) date) Discussed unknown) ibuprofen and Tylenol for pain control and she is safe (unknown) (no (unknown) (unknown) suspicious (units (unk nown) date) unknown) (unknown) (no (unknown) (unknown) tenderness into (units (unknown) date) the calf. No unknown) lymphangitis spread and no inguinal adenopathy (unknown) (no (unknown) (unknown) tenderness. (units (un known) date) Proximal to the unknown) ankle there is no significant swelling and no (unknown) (no (unknown) (unknown) that included in (units (unknown) date) the HPI. unknown) (unknown) (no (unknown) (unknown) the dorsum. There (units (unknown) date) is no redness, unknown) warmth, abscess collection, specific point (unknown) (no (unknown) (unknown) the (units (unkno wn) date) unknown) (unknown) (no (unknown) (unknown) this point I see (units (unknown) date) no evidence of unknown) superimposed infection, abscess and do not (unknown) (no (unknown) (unknown) throughout the (units (unknown) date) foot and ankle. unknown) Cholo wrap is placed reassurance is given. At (unknown) (no (unknown) (unknown) tobacco type: (units ( unknown) date) cigarettes unknown) (unknown) (no (unknown) (unknown) your ankle. With (units (unknown) date) her clinical exam, unknown) I am not concerned with infection, blood Social History No information. Vital Signs No information.
[2022-06-24] MEDS ORDERED: DOXYCYCLINE 100 MG TABLET PO STA (21:52)
[2022-06-24] MEDS ORDERED: oxyCODONE/ACET 5/325 Prepack 4 PO STA (21:52)
--- NOTE | 2022-06-24 21:54 | ED Physician Documentation ---
PD HPI WOUND RECHECK - Stated complaint Stated Complaint: R ARMPIT SWELLING - Chief complaint Chief Complaint: Wound - Histroy obtained from History obtained from: Patient - Additional information Additional information: 36-year-old woman with no significant past medical history presents with a very painful lesion in the right axilla that has been going on for the last 3 days or so. No fevers or chills. She has multiple lesions all over her body, both axilla and the groin as well. She does have some worry for STDs related to this because she has a new boyfriend. No formal diagnosis of hidradenitis suppurativa. Review of Systems Constitutional: denies: Fever, Chills Cardiac: reports: Reviewed and negative Respiratory: reports: Reviewed and negative PD PAST MEDICAL HISTORY - Past Medical History Past Medical History: Yes Cardiovascular: None Respiratory: None Endocrine/Autoimmune: None GI: None : None HEENT: None Psych: Depression Musculoskeletal: None Derm: None - Past Surgical History Past Surgical History: Yes - Present Medications Home Medications: Ambulatory Orders Medication Instructions Recorded Confirmed Doxycycline Hyclate 100 mg PO BID #14 cap 06/24/22 Oxycodone HCl/Acetaminophen 1 - 2 each PO Q6H PRN #14 tablet 06/24/22 [Percocet 5-325 mg Tablet] - Allergies Allergies/Adverse Reactions: Allergies Allergy/AdvReac Type Severity Reaction Status Date / Time No Known Drug Allergies Allergy Verified 06/24/22 21:28 - Social History Does the pt smoke?: Yes Smoking Status: Current every day smoker Does the pt drink ETOH?: Yes Does the pt have substance abuse?: No - Immunizations Immunizations are current?: Yes - POLST Patient has POLST: No PD ED PE NORMAL - Vitals Vital signs reviewed: Yes - General General: Alert and oriented X 3, No acute distress - HEENT HEENT: PERRL, EOMI - Female Female : Other (External exam done with Herson max present. She has some draining cellulitic lesions but also some vesicular lesions that could be consistent with herpes.) - Derm Derm: Other (She has some changes in both axilla consistent with hidradenitis with a large abscess in the right axilla. Also some draining fistula a.) Results - Vitals Vitals: Vital Signs - 24 hr 06/24/22 21:25 Temperature 36.8 C Heart Rate 105 H Respiratory 16 Rate Blood Pressure 137/91 H O2 Saturation 100 Oxygen O2 Source Room air Procedures - Abscess I&D (location) R xilla Preparation: Lidocaine 1% Incision: Incised with scalpel, Purulent drainage, Loculations broken, Packed, Culture obtained Other: Pt tolerated well, Dressing applied, Antibiotic prescribed Departure - Departure Disposition: 01 Home, Self Care Clinical Impression: Abscess of right axilla, Skin lesions Condition: Good Record reviewed to determine appropriate education?: Yes Instructions: ED Abscess IandD Prescriptions: Doxycycline Hyclate 100 mg PO BID #14 cap Oxycodone HCl/Acetaminophen [Percocet 5-325 mg Tablet] 1 - 2 each PO Q6H PRN #14 tablet PRN Reason: pain Comments: You have a herpes PCR test pending. It takes a couple of days. The most reliable way for you to get results is to go to the hospital website at [email or web address], click on the my A2B tab and sign up for the patient portal. We are performing a wound culture, the results should be done in 48-72 hours. If antibiotic change is necessary we will call you. Return if worse in the meantime, especially if you develop increased pain, fevers, cannot keep down the medication. Otherwise follow-up with your physician in approximately 2-3 days For recheck and packing removal [facility] [place] I am prescribing a short course of narcotic pain medication for you. These are potentially dangerous and addictive medications that should be used carefully. These medications may constipate you. Take an jsfp-qoh-ojtfbzn stool softener (docusate) twice daily with plenty of water while taking these medications. If you go 24 hours without a bowel movement, take oxiz-sze-chffcqj miralax, per package instructions. Do not drink or drive while taking these medications. If you received narcotic or sedating medications while in the emergency department, do not drive for 24 hours. Store this medication in a safe, secure place and out of reach of children. It is a violation of federal law to give or sell this medication to another person or to use in a manner other than prescribed. The ED will not refill narcotic prescriptions, including prescriptions lost or stolen. To dispose of unwanted medications: 1. [facility] at [address] in [place] has a medication drop box. They accept prescription medications (in pill form) Saturday through Saturday 9:00 a.m. to 5:00 p.m. 2. The [facility] accepts prescription medications (in pill form only) for disposal year round. Call for more information. 3. Contact the [facility] for the next [facility] sponsored prescription drug collection event. , [phone], or [phone]; Note that many narcotic pain relievers also contain Tylenol/acetaminophen. Please ensure that your total dose of acetaminophen from all sources does not exceed 3 g (3000 mg) per day.
[2022-06-24 22:16] VITALS: BP 130/60
== END 2022-06-24 22:15 | disposition home or self-care (01) ==
LOC: ED 20:34
DX: L02.411 Cutaneous abscess of right axilla (principal); L98.9 Disorder of the skin and subcutaneous tissue, unspecified; F17.200 Nicotine dependence, unspecified, uncomplicated
CPT/HCPCS: 10061; 87070; 87205; 87529; 99282; 99283; A9270; 87181